=== PATIENT | female | born 1975 | race Hispanic/Latino ===

== ENCOUNTER 2016-11-21 11:39 | Observation (INO) | payer SELFPAY ==
[2016-11-21 11:59] LABS: Bilirubin Negative (Negative); Blood, Urine Small (Negative); Glucose, Urine (Dipstick) Negative (Negative); Ketone, Urine Negative (Negative); Nitrite Negative (Negative); Protein, Urine (Dipstick) Negative (Neg-Trace); Urobilinogen 0.2 mg/dL (0.2-1.0)
[2016-11-21 12:09] LABS: Bacteria/HPF 1+ HPF (None Seen); Hyaline Casts/LPF 0-3 HYALINE CAST LPF (0-3 Hyaline); Squamous Epithelial 0-3 HPF (0-3); WBC/HPF 0-3 HPF (0-3)
[2016-11-21 12:16] LABS: #Basophils 0.1 thou/uL (0.0-0.2); #Eosinphils 0.1 thou/uL (0.0-0.7); #Lymphocytes 2.3 thou/uL (1.20-3.40); #Monocytes 0.3 thou/uL (0.11-0.59); #Neutrophils 5.4 thou/uL (1.40-6.50); %Basophils 0.6 % (0.0-1.0); %Eosinophils 1.4 % (0.0-10.0); %Monocytes 3.9 % (0.0-10.0); Hematocrit 41.4 % (36.0-47.0); Mean Platelet Volume 8.1 fL (7.4-10.4); Red Blood Cell (RBC) Count 4.47 mill/uL (4.20-5.40); White Blood Cell (WBC) Count 8.2 thou/uL (4.8-10.8)
[2016-11-21 12:36] LABS: ALT (SGPT) 40 U/L (8-55); AST (SGOT) 34 U/L (5-34); Alkaline Phosphatase 75 U/L (40-150); Anion Gap 15 mmol/L (10-20); BUN (Urea Nitrogen) 8 mg/dL (7.0-18.7); Bilirubin, Total 0.8 mg/dL (0.2-1.2); Calc. Creatinine Clearance 0 mL/min (70-130); Calcium 8.9 mg/dL (7.8-10.44); Carbon Dioxide 22 mmol/L (22-29); Chloride 104 mmol/L (98-107); Estimated GFR-MDRD Greater than 90; Globulin 3.6 g/dL (2.4-3.5); Lipase 12 U/L (8-78); Protein, Total 7.5 g/dL (6.0-8.3)
[2016-11-21] MEDS ORDERED: Ondansetron HCl/PF 4 MG/2 ML Vial ONE ×2 (14:06→15:58)
[2016-11-21] MEDS ORDERED: Piperacillin/Tazobactam 3.375 GM in Sodium Chloride 0.9% 100 ML IVPB SCH (15:15)
[2016-11-21] MEDS ORDERED: Bupivacaine HCl 0.5%/Epinephrine 1:200,000/PF 30 ml Vial ONE (15:19)
[2016-11-21] MEDS ORDERED: Fentanyl 100 MCG/2 ML VIAL ONE (15:44)
[2016-11-21] MEDS ORDERED: Lidocaine 2% PF 10 ML AMP (For Epidural Use) ONE (15:58)
[2016-11-21] MEDS ORDERED: Propofol 200 MG/20 ML VIAL ONE (15:58)
[2016-11-21] MEDS ORDERED: Ketorolac Tromethamine 30 MG/ML VIAL ONE (15:58)
[2016-11-21] MEDS ORDERED: Dexamethasone 20 MG/5 ML VIAL ONE (15:58)
[2016-11-21] MEDS ORDERED: Glycopyrrolate 0.2 MG/ML 5 ML SYRINGE ONE (15:58)
[2016-11-21] MEDS ORDERED: Succinylcholine Chloride 20 MG/ML 10 ml SYRINGE FS ONE (15:58)
[2016-11-21] MEDS ORDERED: ISOVUE-370 76%-LOCM 1 ML ONE (16:44)
[2016-11-21] MEDS ORDERED: Iopamidol 370 76% 50 ML VIAL FS ONE (16:44)
--- NOTE | 2016-11-21 17:11 | HP ---
CHIEF COMPLAINT: Appendicitis. BRIEF HISTORY: The patient is a 41-year-old female with a history of pain in her lower abdomen, arabella cribed as sharp as 8/10, mostly in the right lower quadrant associated with nausea, no vomiting, no fevers or chills. No change in stools. No history of chronic abdominal pain. No history of inflam matory bowel disease. PAST MEDICAL HISTORY: She denies. PAST SURGICAL HISTORY: She denies. MEDICINES TAKEN DAILY: None. ALLERGIES: No known drug allergies. SOCIAL HISTORY: No smoking, alcohol or other drugs. REVIEW OF SYSTEMS: Ten system review of systems otherwise negative unless described above. PHYSICAL EXAMINATION: HEENT: Sclerae are anicteric. Oropharynx is clear. NECK: No lymphadenopathy. CHEST: Clear. HEART: Regular rate and rhythm. ABDOMEN: Soft, tender right lower quadrant, localized guarding, no rebound, no abdominal or inguina l hernias. EXTREMITIES: No ischemia or edema to extremities. DIAGNOSTIC DATA: CT scan shows acute appendicitis. ASSESSMENT: Acute appendicitis. PLAN: Laparoscopic appendectomy. Risks, benefits, and alternatives discussed. She gives consent. We will do this today.
[2016-11-21] MEDS ORDERED: Promethazine HCl 25 MG/ML VIAL IM PRN ×2 (17:18→19:44)
[2016-11-21] MEDS ORDERED: Promethazine HCl 25 MG/ML VIAL SLOW IVP PRN (17:18)
[2016-11-21] MEDS ORDERED: Ondansetron HCl/PF 4 MG/2 ML Vial IVP PRN ×2 (17:18→19:44)
--- NOTE | 2016-11-21 17:36 | CT ---
CONTRAST ENHANCED CT ABDOMEN AND PELVIS: Date: 11-21-16 History: Abdominal pain for two days, dysuria. Technique: Images obtained after the administration of IV and oral contrast. FINDINGS: The lung bases are unremarkable. No evidence of free intraperitoneal air is seen. The liver, spleen, gallbladder, pancreas, adrenal gland and kidneys are unremarkable. No dilated loo ps of small bowel seen. There is an abnormally thickened and inflamed appendix in the right lower quadrant with surrounding inflammatory change. The appendix measures up to 17 mm in diameter. Some adjacent pericecal lymphade nopathy is seen. No obvious evidence of abscess is seen. Also noted is an approximately 2-3 appendicolith within the appendix lumen. IMPRESSION: Abnormally thickened and inflamed appendix compatible with appendicitis. Findings called to Dr. Jesus ivla at 2:33 p.m. on 11-21-16. POS: [facility]
[2016-11-21 18:44] LABS: Troponin I Less than 0.010 ng/mL (< 0.028)
--- NOTE | 2016-11-21 19:15 | RAD ---
AP PORTABLE CHEST: Indication: Post op chest pain. Comparison: None. IMPRESSION: No acute cardiopulmonary abnormality. Low lung volumes. No pneumoperitoneum. COMMENTS: Heart size is accentuated by the exam technique. No airspace consolidation, pleural effusion or pneu mothorax is evident. No air is underlying the hemidiaphragms. No acute osseous abnormality is noted. POS: [facility]
[2016-11-21] MEDS ORDERED: HYDROcodone/Acetaminophen 10/325 mg Tablet PO PRN ×2 (19:44)
[2016-11-21] MEDS ORDERED: Dextrose 5% in Water 1,000 ML IV PRN (19:44)
[2016-11-21] MEDS ORDERED: Morphine Sulfate 2 MG/ML SYRINGE SLOW IVP PRN (19:44)
[2016-11-21] MEDS ORDERED: Nitroglycerin 0.4 MG TAB (25 Tab Bottle) SL PRN (19:44)
[2016-11-21] MEDS ORDERED: Dextrose 50% Abboject 50 ML SYRINGE SLOW IVP PRN (19:44)
[2016-11-21] MEDS ORDERED: Aspirin 325 MG TAB PO SCH (20:15)
[2016-11-21] MEDS: Famotidine 20 MG TAB PO SCH (20:48)
[2016-11-21] MEDS: Famotidine/PF 20 mg/2ml Vial SLOW IVP SCH (20:49)
[2016-11-21] MEDS: Sodium Chloride 0.9% 1,000 ML IV SCH (20:49)
[2016-11-21] MEDS: Piperacillin/Tazobactam 3.375 GM in Sodium Chloride 0.9% 100 ML IVPB SCH (20:50)
[2016-11-21] MEDS: Ketorolac Tromethamine 30 MG/ML VIAL IVP PRN (20:50)
[2016-11-21 21:30] LABS: Troponin I Less than 0.010 ng/mL (< 0.028)
--- NOTE | 2016-11-21 22:09 | OP ---
DATE OF PROCEDURE: 11/21/2016 PREOPERATIVE DIAGNOSIS: Acute appendicitis. POSTOPERATIVE DIAGNOSIS: Acute appendicitis. PROCEDURE PERFORMED: Laparoscopic appendectomy. SURGEON: Hosea Jensen M.D. ANESTHESIA: General. ESTIMATED BLOOD LOSS: Minimal. COMPLICATIONS: None. SPECIMEN: Appendix. FINDINGS: Appendicitis. TECHNIQUE: The patient was taken to the operating room and placed supine on the table. After gener al anesthetic was obtained, a Parada catheter was placed. The abdomen was shaved, and draped in a st erile fashion. Curved incision made below the umbilicus. Cautery was used to dissect down to and s core the fascia. Abdominal cavity was entered bluntly using a Amparo clamp. Holding stitch of PDS w as on each side of the fascia. Marinelli trocar was placed. High-flow pneumoperitoneum was obtained. A suprapubic 5-mm port and a left lower quadrant 5-mm port were placed under direct visualization. The cecum was rolled over to reveal acute appendicitis. A small window was made at the base of the appendix in the mesoappendix. Laparoscopic stapler was fired across the base of the appendix. A v ascular reload fired across the mesoappendix. The appendix was placed in an Endo catch bag and brou ght out through the Marinelli. There was no bleeding on the staple lines. The abdomen was irrigated u sing sterile solution. There was no damage to any intraabdominal structures or evidence of perforat ion. All port sites were infiltrated using local anesthetic. All ports were removed under direct v isualization without bleeding. Pneumoperitoneum was let down. PDS was used to close the fascial de fect below the umbilicus. All incisions were irrigated and closed using 4-0 Monocryl and Dermabond. The patient was en route to recovery in stable condition. All instrument counts, needle counts, a nd lap counts were correct.
[2016-11-21 22:23] VITALS: BMI 35.1
[2016-11-22 00:59] LABS: Troponin I Less than 0.010 ng/mL (< 0.028)
[2016-11-22] MEDS: Ketorolac Tromethamine 30 MG/ML VIAL IVP PRN (04:10)
[2016-11-22] MEDS: Piperacillin/Tazobactam 3.375 GM in Sodium Chloride 0.9% 100 ML IVPB SCH ×2 (04:11→08:09)
[2016-11-22 07:35] VITALS: TEMP 97.5
--- NOTE | 2016-11-22 08:03 | CON ---
DATE OF CONSULTATION: 11/21/2016 PRIMARY CARE PROVIDER: Eddie kwan PRIMARY SERVICE ATTENDING: Dr. Jensen. REASON FOR CONSULTATION: Chest pain. HISTORY OF PRESENT ILLNESS: This is a 41-year-old female, postoperatively evaluated in the PACU after emergent laparoscopic appendectomy, after presenting with an acute appendicitis. The nickie olivier underwent laparoscopic appendectomy. Apparently, uncomplicated and was transferred to PACU fo r general observation. The patient has complained of some upper abdominal and left-sided chest disc omfort and pressure radiating it initially 08/07. The patient received general anesthesia per PACU p minerva. The patient denied any known history of coronary artery disease, prior chest pain and PAC U personnel denied any any specific documented fever, hypertensive episodes of tachycardia or hypoxe jared. The patient did receive IV morphine sulfate in the emergency department, in addition to Zosyn 3.375 grams and intravenous normal saline with Zofran. The patient denies any strong family history of coronary artery disease. PAST MEDICAL HISTORY: Appendicitis. PAST SURGICAL HISTORY: Status post laparoscopic appendectomy secondary to appendicitis. CHRONIC MEDICATIONS: None. ALLERGIES: No known drug allergies. FAMILY HISTORY: No inheritable diseases per patient report. SOCIAL HISTORY: The patient is , accompanied by her at the bedside. No current alco hol, tobacco or illicit drug use. REVIEW OF SYSTEMS: The following complete review of systems was negative, unless otherwise mentione d in the HPI or below: Constitutional: Weight loss or gain, ability to conduct usual activities. Skin: Rash, itching. Eyes: Double vision, pain. ENT/Mouth: Nose bleeding, neck stiffness, pain, tenderness. Cardiovascular: Palpitations, dyspnea on exertion, orthopnea. Respiratory: Shortnes s of breath, wheezing, cough, hemoptysis, fever or night sweats. Gastrointestinal: Poor appetite, abdominal pain, heartburn, nausea, vomiting, constipation, or diarrhea. Genitourinary: Urgency, frequency, dysuria, nocturia. Musculoskeletal: Pain, swelling. Neurologic/Psychiatric: Anxiety, depression. Allergy/Immunolo gic: Skin rash, bleeding tendency. Otherwise negative except as stated as per HPI. PHYSICAL EXAMINATION: VITAL SIGNS: Currently, blood pressure 115/43, pulse 42-56, respiratory rate is 12, temperature 98. 0 degrees Fahrenheit, O2 saturation 100% on room air. GENERAL APPEARANCE: This is a 41-year-old female, alert and oriented x3, pleasant and in n o acute distress. HEENT: Pupils are equal, round, and reactive to light and accommodation. Extraocular muscles are i ntact. No scleral icterus, no conjunctival injection. Nares patent. OP is clear. NECK: Supple, no cervical adenopathy, no thyromegaly, no carotid bruits, no JVD appreciated. Cervi roosevelt spine with full active and passive range of motion. No meningeal signs appreciated. CHEST: Lungs are clear to auscultation bilaterally. CARDIOVASCULAR: S1, S2, without noted murmur. ABDOMEN: Tender to palpation in the left upper quadrant and right lower quadrant. Post-surgical ch anges noted without evidence of drainage or hemorrhage. Bowel sounds are diminished in all 4 quadra nts. EXTREMITIES: Warm and dry with fair turgor. No clubbing, cyanosis or asymmetric edema appreciated. Pulses palpable distally at the dorsalis pedis, posterior tibial and popliteal arteries bilaterall y. Capillary refill less than 2 seconds. NEUROLOGIC: Cranial nerves II-XII are grossly intact. No focal or lateralizing signs appreciated. PERTINENT LABORATORY AND X-RAY FINDINGS: Basic metabolic profile within normal limits. LFTs within normal limits. Albumin 3.9, lipase 12. CBC showed a white blood cell count 8.2, hemoglobin 14, he matocrit 41, and platelet count 216,[address] of the abdomen and pelvis date d 11/21/2016 showed inflammatory changes of the appendix consistent with appendicitis. The appendix measuring 1.7 cm bilateral lung bases clear. Portable chest x-ray dated 11/21/2016 by my interpret ation shows no acute cardiopulmonary process. EKG dated 11/21/2016 by my interpretation shows sinus bradycardia with heart rates in the 50s. Normal R-wave progression noted in the precordial leads. T-wave inversion in leads V1 and V2. Normal axis. No acute ST-T wave changes appreciated. ASSESSMENT AND PLAN: 1. Chest pain. Etiology unclear, likely post-surgical pain. We will continue serial cardiac enzym es with troponin I q.3h x3. Continue telemetry monitoring overnight. No current evidence to sugges t acute coronary syndrome. Continue symptomatic and supportive management. Consider IV Toradol 30 mg q.6 h. p.r.n. pain, Pepcid 20 mg q.12 h. 2. Acute appendicitis, status post laparoscopic appendectomy. We will continue routine postoperati ve care per primary service. Pain control with morphine sulfate. Continue intravenous normal salin e. Zosyn 3.375 grams IV q.6 h. 3. Sinus bradycardia. Stable currently. Continue telemetry monitoring. 4. Prophylaxis. Sequential compression devices, while in bed. Pepcid 20 mg p.o. b.i.d. 5. Code status is FULL. Surrogate medical decision maker is patient's spouse. Thank you for the consultation. We will continue to follow with primary service.
[2016-11-22] MEDS: Famotidine/PF 20 mg/2ml Vial SLOW IVP SCH (08:08)
[2016-11-22] MEDS: Sodium Chloride 0.9% 1,000 ML IV SCH (08:08)
[2016-11-22] MEDS: Famotidine 20 MG TAB PO SCH (08:09)
--- NOTE | 2016-11-22 08:14 | PRG ---
DATE OF SERVICE: 11/22/2016 Ms. Almazan is doing well this morning. She notes mild lower substernal chest pain is improved si nce yesterday. No significant abdominal pain, nausea. She tolerated diet without difficulty. PHYSICAL EXAMINATION: VITAL SIGNS: Blood pressure is 89/59, pulse is 40, temperature 97.5, respirations 16. ABDOMEN: Soft, appropriately tender. The wounds are healing well. ASSESSMENT: Postop day #1 laparoscopic appendectomy complicated by postop chest pain. Troponins no rmal. Tracing overnight showed about of nonsustained V-tach. PLAN: Will defer to medicine on disposition and plans for discharge.
[2016-11-22 08:18] LABS: #Lymphocytes 1.5 thou/uL (1.20-3.40); #Monocytes 0.4 thou/uL (0.11-0.59); #Neutrophils 7.9 thou/uL (1.40-6.50); %Basophils 0.1 % (0.0-1.0); %Eosinophils 0.1 % (0.0-10.0); %Lymphocytes 15.2 % (21.0-51.0); Red Blood Cell (RBC) Count 3.87 mill/uL (4.20-5.40); White Blood Cell (WBC) Count 9.8 thou/uL (4.8-10.8)
[2016-11-22 08:40] LABS: Anion Gap 11 mmol/L (10-20); BUN (Urea Nitrogen) 8 mg/dL (7.0-18.7); Calc. Creatinine Clearance 162 mL/min (70-130); Carbon Dioxide 22 mmol/L (22-29); Chloride 110 mmol/L (98-107); Estimated GFR-MDRD Greater than 90
--- NOTE | 2016-11-22 10:41 | DIS ---
DATE OF ADMISSION: 11/21/2016 DATE OF DISCHARGE: 11/22/2016 DISCHARGE DIAGNOSES: 1. Status post acute appendicitis. 2. Status post laparoscopic appendectomy, postop day #01. 3. Chest pain, non-cardiac. 4. Sinus bradycardia. 5. Asymptomatic nonsustained ventricular tachycardia. PRIMARY SERVICE ATTENDING: Dr. Jensen with General Surgery service. PERTINENT LABORATORY DATA AND X-RAY FINDINGS: Basic metabolic profile within normal limits. Tropon in I negative x3. Total cholesterol 185, triglycerides 72, HDL 41, LDL 130, lipase 12. CBC within normal limits. CT of the abdomen and pelvis dated 11/21/2016 showed thickened and inflamed appendix compatible for appendicitis. HOSPITAL COURSE: Patient was observed after presenting with acute appendicitis, undergoing laparosc opic appendectomy, 11/21/2016. Postoperatively, patient developed chest pain with serial troponins measured x3, all negative. EKG was performed showing sinus bradycardia without evidence of acute ST -T wave changes. The patient was placed on observation status on the telemetry unit with telemetry showing sinus bradycardia with heart rates ranging in the 40s to 60s. The patient was noted with as ymptomatic V-tach 5 beats nonsustained, resolving spontaneously. Overall, the patient remained clin ically stable throughout the hospital course with stable vital signs. The patient is asymptomatic o n the day of discharge tolerating regular oral intake, ambulatory without assistance or difficulty a nd ready for discharge 11/22/2016. DISCHARGE MEDICATIONS: 1. Lucernemines 10/325 mg 1-2 tabs p.o. q.6 hours p.r.n. pain. 2. Phenergan 25 mg 1 tab p.o. q.6 hours p.r.n. nausea, vomiting. FOLLOWUP: Patient will follow up with [facility] in [place], [place] within 7 days of discharge. Dalia ent will follow up with Dr. Jensen with General Surgery Service within 7 days of discharge. CONDITION ON DISCHARGE: Stable. ACTIVITY: Ad rashid. DIET: Heart healthy. CODE STATUS: FULL. DISPOSITION: Home, 11/22/2016.
[2016-11-22 10:44] VITALS: BP 90/50
== END 2016-11-22 12:14 | disposition home or self-care (01) ==
LOC: ERS 11:39 → SDC 15:38 → 2SW 19:28
PROVIDERS: ADMIT Family Medicine; ATTEND Surgery
PROC: 0DTJ4ZZ Resection of Appendix, Percutaneous Endoscopic Approach (ICD-10-PCS; principal; 2016-11-22)
DX: K35.80 Unspecified acute appendicitis (principal); R07.89 Other chest pain; R00.1 Bradycardia, unspecified; I47.2 Ventricular tachycardia
CPT/HCPCS: 36415; 71010; 74177; 80048; 80053; 80061; 81003; 81015; 81025; 83690; 84484; 85025; 88304; 93005; 93010; 94760; 96361; 96365; 96366; 96374; 96375; 96376; G0378; J0670; J1100; J1885; J2001; J2270; J2405; J2543; J2704; J3010; J7050; S0028

== ENCOUNTER 2019-09-18 00:50 | Inpatient (IN) | payer OTHER, SELFPAY ==
[2019-09-18 01:37] LABS: Hemoglobin 13.4 g/dL (12.0-16.0); Mean Corpuscular HGB CONC 34.6 g/dL (32.0-36.0); Mean Corpuscular Hemoglobin 31.9 pg (27.0-31.0); Mean Corpuscular Volume 92.1 fL (78.0-98.0); Mean Platelet Volume 8.6 fL (7.4-10.4); Platelet Count 180 thou/uL (130-400); RBC Distribution Width 11.2 % (11.5-14.5); White Blood Cell (WBC) Count 2.9 thou/uL (4.8-10.8)
[2019-09-18 01:50] LABS: ALT (SGPT) 16 U/L (8-55); AST (SGOT) 17 U/L (5-34); Albumin 3.9 g/dL (3.5-5.0); Alkaline Phosphatase 46 U/L (40-110); Anion Gap 11 mmol/L (10-20); BUN (Urea Nitrogen) 10 mg/dL (7.0-18.7); Bilirubin, Total 0.2 mg/dL (0.2-1.2); Calc. Creatinine Clearance 0 mL/min (70-130); Calcium 8.1 mg/dL (7.8-10.44); Carbon Dioxide 22 mmol/L (22-29); Chloride 108 mmol/L (98-107); Estimated GFR-MDRD 70; Globulin 2.8 g/dL (2.4-3.5); Glucose 101 mg/dL (70-105); Potassium 3.7 mmol/L (3.5-5.1); Protein, Total 6.7 g/dL (6.0-8.3); Sodium 137 mmol/L (136-145)
[2019-09-18] MEDS ORDERED: Atropine Sulfate 1 mg/10 ml Syringe ONE ×2 (02:10→02:51)
[2019-09-18 02:14] LABS: Band 5 % (5-11); Eosinophils 1 % (0-10); Lymphocytes 58 % (21-51); MDiff Complete? YES; Monocytes 5 % (0-10); Neutrophil 31 % (42-75); Platelet Morphology Comment Appears Adequate; RBC Morphology Normal
[2019-09-18] MEDS ORDERED: Sodium Chloride 0.9% 1,000 ML IV SCH (03:32)
[2019-09-18 04:00] VITALS: BMI 31.3
[2019-09-18] MEDS ORDERED: Atropine Sulfate 1 mg/10 ml Syringe IVP SCH (04:15)
[2019-09-18] MEDS ORDERED: Ondansetron ODT 4 MG TAB PO PRN (04:28)
[2019-09-18] MEDS ORDERED: Dextrose 5% in Water 1,000 ML IV PRN (04:45)
[2019-09-18] MEDS ORDERED: Dextrose 50% Abboject 50 ML SYRINGE SLOW IVP PRN (04:45)
[2019-09-18] MEDS: Sodium Chloride 0.9% 1,000 ML IV SCH ×3 (05:36→19:39)
--- NOTE | 2019-09-18 07:02 | HP ---
PRIMARY CARE PROVIDER: Shweta [place], [place]. CHIEF COMPLAINT: Generalized weakness. HISTORY OF PRESENT ILLNESS: This is a 44-year-old female who presents for increasing generalized weakness over the last 3 to 4 days after apparently testing positive for COVID-19 at an outside facility. The patient noted progressive fatigue and weakness, at which point EMS was notified. EMS personnel arrived at her home and noted altered mentation with a heart rate noted in the 30s. The patient was given atropine, which increased the heart rate into the 50s, at which the patient became more coherent and lucid. The patient has been noted with bradycardia after admission to [facility] in 2017, but was not put on any specific therapy for the condition. The patient admitted to associated diarrhea without documented fever or chills. The patient denied any prominent shortness of breath, cough, congestion, or history of pneumonia. The patient denied any associated chest pain. The patient denied any new exposure to medications or family members with similar symptoms. In the emergency room, the patient underwent general evaluation with EKG showing sinus bradycardia with heart rates in the 30s to 50s. The patient was given atropine 0.5 mg IV push x1 dose and intravenous normal saline 500 mL x1. PAST MEDICAL HISTORY: 1. Sinus bradycardia. 2. Diabetes mellitus type 2, on oral hypoglycemics. PAST SURGICAL HISTORY: Status post section. CURRENT MEDICATIONS: Metformin 500 mg p.o. daily. ALLERGIES: NO KNOWN DRUG ALLERGIES. FAMILY HISTORY: Positive for diabetes mellitus. SOCIAL HISTORY: Resides in [place], [place]. No current alcohol, tobacco, or illicit drug use. Functional of all activities of daily living. REVIEW OF SYSTEMS: CONSTITUTIONAL: Negative for weight loss or gain, ability to conduct usual activities. SKIN: Negative for rash, itching. EYES: Negative for double vision, pain. ENT/MOUTH: Negative for nose bleeding, neck stiffness, pain, tenderness. CARDIOVASCULAR: Negative for palpitations, dyspnea on exertion, orthopnea. RESPIRATORY: Negative for shortness of breath, wheezing, cough, hemoptysis, fever or night sweats. GASTROINTESTINAL: Negative for poor appetite, abdominal pain, heartburn, nausea, vomiting, constipation, or diarrhea. GENITOURINARY: Negative for urgency, frequency, dysuria, nocturia. MUSCULOSKELETAL: Negative for pain, swelling. NEUROLOGIC/PSYCHIATRIC: Negative for anxiety, depression. ALLERGY/IMMUNOLOGIC: Negative for skin rash, bleeding tendency. Otherwise, negative except as stated per HPI. PHYSICAL EXAMINATION: VITAL SIGNS: On admission, blood pressure 112/70, pulse 51, respiratory rate 20, temperature 98 degrees Fahrenheit, and O2 saturation 100% on room air. GENERAL APPEARANCE: This is a 44-year-old female, alert and oriented x3, pleasant, responsive, in no acute distress. HEENT: Pupils are equal, round, reactive to light and accommodation. Extraocular muscles are intact. No scleral icterus. No conjunctival injection. Nares are patent. OP is clear. Teeth in fair repair. NECK: Supple. No cervical adenopathy. No thyromegaly. No carotid bruits. No JVD appreciated. Cervical spine with full active and passive range of motion. No meningeal signs noted. CHEST: Lungs are clear to auscultation bilaterally. CARDIOVASCULAR EXAM: S1 and S2 with bradycardia. No murmur, rub, or gallop appreciated. ABDOMEN: Rounded, soft, nontender, and nondistended. Bowel sounds are positive in all 4 quadrants. There is no hepatosplenomegaly. No abdominal bruits. No rebound or guarding appreciated. EXTREMITIES: Warm and dry with fair turgor. No clubbing, cyanosis, or asymmetric edema appreciated. Pulses palpable distally at the dorsalis pedis, posterior tibial, and popliteal arteries bilaterally. Capillary refill less than 2 seconds. NEUROLOGIC: Cranial nerves 2 through 12 are grossly intact. No focal or lateralizing signs appreciated. PERTINENT LABORATORY AND X-RAY FINDINGS: Sodium 137, potassium 3.7, chloride 108, CO2 of 22, BUN 10, creatinine 0.89, glucose 101, calcium 8.1. Troponin I negative x1. Albumin 3.9. TSH 5.95. CBC showed a white blood cell count 2.9, hemoglobin 13.4, hematocrit 39, platelet count 180 with 31% neutrophils and 58% lymphocytes. Portable chest x-ray dated 09/18/2019, by my interpretation shows cardiomegaly. No acute infiltrate identified. ASSESSMENT AND PLAN: 1. Symptomatic bradycardia. We will consult Cardiology Service in the a.m. for further recommendations. Continue external pacers at the bedside. Provide atropine 0.5 mg IV push as needed. Check 2D transthoracic echocardiogram. 2. COVID-19 positive. The patient will be placed on respiratory and droplet precautions. No hypoxia noted. Continue dexamethasone at 6 mg p.o. daily. Serial ferritin, D-dimer. 3. Diabetes mellitus, type 2. Insulin sliding scale for reflexive coverage. Serial Accu-Cheks before meals and at bedtime. ADA diet when tolerating p.o. intake. 4. Prophylaxis. Sequential compression devices while in bed. Pepcid 20 mg p.o. b.i.d. 5. Code status, full. Surrogate medical decision maker is the patient's mother. Job ID: [id number]
[2019-09-18 07:49] LABS: Troponin I Less than 0.010 ng/mL (< 0.028)
--- NOTE | 2019-09-18 07:51 | RAD ---
EXAM: Single view of the chest HISTORY: Shortness of breath and weakness. Altered mental status COMPARISON: 11/21/2016 FINDINGS: Single view of the chest shows a normal sized cardiomediastinal silhouette. There is no denisse dence of consolidation, mass, or pleural effusion. The bones are unremarkable IMPRESSION: No evidence of acute cardiopulmonary disease
[2019-09-18] MEDS: Famotidine 20 MG TAB PO SCH ×2 (08:30→19:39)
--- NOTE | 2019-09-18 12:59 | CON ---
DATE OF CONSULTATION: 09/18/2019 HISTORY OF PRESENT ILLNESS: Rose Almazan is a 44-year-old female, 82 kg, is in the hospital for marked weakness and found to have significant bradycardia. Heart rate was 30. She was given some atropine and it went to 50. She was admitted to the ICU. She was diagnosed to have a positive coronavirus over the weekend several days ago. She is in the ICU, reason for consult. Apparently, Cardiology to see the patient. PAST MEDICAL HISTORY: Pertinent for diabetes. PAST SURGICAL HISTORY: 1. Cystectomy. 2. . SOCIAL HISTORY: No alcohol or tobacco abuse. HOME MEDICINE: Metformin 500 once a day. ALLERGIES: NONE. REVIEW OF SYSTEMS: Otherwise, negative. She is now in the ICU. A chest x-ray at the time of admission showed no obvious infiltrates. Symptomatic bradycardia, recent diagnosis of rocha positive pneumonia, diabetes. Pulmonary carmona, asymptomatic, we are not treated with any medication as far as for virus. Input from Cardiology. Pulmonary will follow while in the ICU. TIME SPENT: Consultation note, 70 minutes, 50% direct patient care. Job ID: [id number]
[2019-09-18] MEDS ORDERED: Dexamethasone 4 MG TAB PO SCH (13:15)
[2019-09-18 13:51] LABS: Free T4 (Free Thyroxine) 0.88 ng/dL (0.70-1.48)
[2019-09-18] MEDS: DOPamine 400 MG/D5W 250 ML 250 ML IVPB SCH (14:48)
--- NOTE | 2019-09-18 15:47 | PDOC.HOSPP ---
- Subjective Encounter Date: 09/18/19 Encounter Time: 12:30 Subjective: THe patient states her weakness has significantly improved. She states she mostly presented with weakness and had trouble getting out of bed. She has minimal cough and no blood. No chest pain. No dizziness or lightheadedness when walking. patient states she didn't sleep well last night because her heart rate went down into the 30's at times. She denies history of heart problems in the past Explained to patient cannot do pacemaker at this time due to COVId infection - Objective Vital Signs & Weight: Vital Signs (12 hours) Temp 09/18/19 08:00 97.8 F 09/18/19 04:17 98.4 F Weight Weight 182 lb 5.156 oz Most Recent Monitor Data Heart Rate from ECG 41 NIBP 111/63 NIBP BP-Mean 79 Respiration from ECG 16 SpO2 100 I&O: 09/17/19 09/18/19 09/19/19 06:59 06:59 06:59 Intake Total 130 Output Total 450 Balance -320 Result Diagrams: 09/18/19 01:10 09/18/19 01:10 Hospitalist ROS - Review of Systems Constitutional: denies: fever, chills - Medication Medications: Active Medications Generic Name Dose Route Start Last Admin Trade Name Freq PRN Reason Stop Dose Admin Famotidine 20 mg 09/18/19 09:00 09/18/19 08:30 Pepcid PO 20 mg BID EVE Administration Sodium Chloride 1,000 mls @ 100 mls/hr 09/18/19 04:30 09/18/19 14:50 Normal Saline 0.9% IV 1,000 mls .Q10H EVE Administration Dopamine HCl/Dextrose 250 mls @ 7.753 mls/hr 09/18/19 13:15 09/18/19 14:48 Dopamine 400 Mg/D5w 250 Ml IVPB 250 mls INF EVE Administration Protocol 2.5 MCG/KG/MIN - Exam General Appearance: NAD, awake alert Eye: PERRL, anicteric sclera ENT: normocephalic atraumatic, no oropharyngeal lesions Neck: no JVD Heart: RRR, no murmur, no gallops, no rubs Respiratory: CTAB, no wheezes, no rales, no ronchi Gastrointestinal: soft, non-tender, non-distended, normal bowel sounds Extremities: no cyanosis, no clubbing, no edema Skin: normal turgor, no lesions, no rashes Neurological: cranial nerve grossly intact, normal sensation to touch, no focal deficits, no new deficit Musculoskeletal: normal tone, normal strength, no muscle wasting Psychiatric: normal affect, normal behavior, A&O x 3, oriented to person Hosp A/P - Plan This is a 44 year old female with past medical history of diabetes recently diagnosed with COVID who presented with weakness, she was found to be bradycardic as well Generalized weakness - possibly from COVID vs bradycardia - currently not requiring oxygen - heart rate intermittently dropping into 30's and patient slightly hypotensive. Starting on dopamine per cardiology - TSH elevated at 5.9, but free T3 and T4 normal -trial dexamethasone given COVID infection Leukopenia - WBC 2.9, likely from COVID - will monitor Type II diabetes - continue insulin sliding sclae
[2019-09-18] MEDS ORDERED: Lidocaine 1% w/Epinephrine 1:100K 20 ML VIAL IJ SCH (16:12)
[2019-09-18] MEDS ORDERED: Lidocaine 1% w/Epinephrine 1:100K 20 ML VIAL ONE (16:19)
[2019-09-18] MEDS ORDERED: Lidocaine 1% (PF) 30 ML VIAL ONE (17:10)
--- NOTE | 2019-09-18 19:58 | RAD ---
PORTABLE CHEST ONE VIEW: 09/18/19 at 6:17 p.m. HISTORY: Central line placement. COMPARISON: Earlier exam of 1:42 a.m. from the same date. FINDINGS/IMPRESSION: There has been interval placement of a right internal jugular central venous catheter with tip in the projection of the right atrium. No pneumothorax is seen. The heart size is normal. No lobar consolid ation or pleural effusions are identified. POS: [facility]
--- NOTE | 2019-09-18 20:00 | CON ---
DATE OF CONSULTATION: 09/18/2019 INDICATION FOR CONSULTATION: A 44-year-old female with symptomatic bradycardia. HISTORY OF PRESENT ILLNESS: This 44-year-old female, who is Ghanaian-speaking only, apparently had been not feeling well over the last several days. She was found to be positive for COVID at a different facility. She then was presented here after family noticed that she was somewhat unresponsive or had altered mentation. Her heart was found to be in the 30s by EMT. She was given, I believe, atropine. The heart rate did increase. She became more lucid. She then was brought to the emergency room and was admitted to the hospital. She has also had some problems with some diarrhea. She denied any significant shortness of breath. Apparently , her chest pain. She had no other symptoms according to the records. Her EKG did show heart rates which were sinus in the 30s to 50s. She did have an old EKG previously, which also showed heart rate in the 50s, this was from a previous admission. Otherwise, she has had no chest pain or any symptoms of congestive heart failure. PAST MEDICAL HISTORY: Significant for the bradycardia, which is an ongoing problem for her. She also has diabetes type 2. She has had a and noticed from her laboratory data that she has what appears to be hypothyroidism, which may be contributing some to the bradycardia. The workup is not yet complete and there has been no history in the past of any problems with her thyroid. MEDICATIONS: Prior to admission include metformin 500 mg a day. ALLERGIES: NONE. FAMILY HISTORY: Positive for diabetes. SOCIAL HISTORY: There is no history of alcohol or tobacco abuse. REVIEW OF SYSTEMS: Unremarkable except for not feeling well what is noted in the history of present illness. Otherwise, no significant complaints on the review of systems. PHYSICAL EXAMINATION: GENERAL: Reveals a well-developed, well-nourished, young appearing female. VITAL SIGNS: Stable. Her blood pressure is 89/49, previously was 109/60; heart rate is in the 40s to 50s at present and is around 42 beats per minute, last evening it was in the 30s; temperature is 98.4; respiratory rate is 13 to 15. HEENT: Shows the head to be normocephalic and atraumatic. NECK: Carotid pulses are present. There were no bruits noted. CHEST: Actually was clear to auscultation. CARDIOVASCULAR: Reveals a bradycardia, which is regular. There were no gross murmurs. ABDOMEN: Soft and nontender. EXTREMITIES: Show no clubbing, cyanosis, or edema. Pedal pulses are present. NEUROLOGIC: She appears to be intact. Also please note her heart rate varies even while monitoring the patient, it was in the 40s to 52 beats per minute. All remained sinus. LABORATORY DATA: Sodium is 137, potassium 3.7, BUN was 10, creatinine 0.89, blood sugar was 109, bicarb was 22. Hemoglobin is 13.4, WBC of 2.9, platelet count of 180,000. TSH was 5.9. Cardiac enzymes are negative for myocardial infarction. EKG shows a sinus bradycardia with no acute changes. IMPRESSION: Sinus bradycardia, which has become worsen and may be perhaps due to her illness, perhaps due to overall illness with COVID, or due to underlying what appears to be hypothyroidism. At this time, she is not a candidate to undergo pacemaker insertion. She may have been symptomatic with bradycardia for sure if it is in the 30s, but at this time is not a candidate for pacemaker insertion. She does have an external pacemaker at bedside and this would be used if necessary. She did respond to atropine, which we could continue to use on a p.r.n. basis. If necessary, we could start a low dose of epinephrine if we had too or even we could start her on dopamine to increase her heart rate. At this time, her blood pressure seems to be somewhat fluctuant also, but is stable, most likely lower blood pressures are due to also trying to check it with the cuff during bradycardia . At this time, I believe she is overall stable. She appears to be asymptomatic and very comfortable. We will continue to monitor the patient with you but at this time, again she is not a candidate for pacemaker insertion, but she will need to be monitored in the hospital for further events and should she need to have the dopamine started, then we could certainly do this and may try a low-dose of dopamine to see if it improves her overall. Job ID: [id number] MTDD
[2019-09-18] MEDS: HumaLOG 300 UNITS/3 ML VIAL SC PRN (20:09)
[2019-09-18] MEDS: Acetaminophen 500 MG TAB PO PRN (21:46)
[2019-09-19] MEDS: DOPamine 400 MG/D5W 250 ML 250 ML IVPB SCH ×3 (01:26→20:07)
[2019-09-19] MEDS: Sodium Chloride 0.9% 1,000 ML IV SCH ×4 (01:27→22:17)
--- NOTE | 2019-09-19 01:29 | OP ---
DATE OF PROCEDURE: 09/18/2019 PREOPERATIVE DIAGNOSES: Bradycardia, venous insufficiency. POSTOPERATIVE DIAGNOSES: Bradycardia, venous insufficiency. PROCEDURE PERFORMED: Central line, right internal jugular vein. ANESTHESIA: Local. ESTIMATED BLOOD LOSS: Minimal. COMPLICATIONS: None. SPECIMEN: None. FINDINGS: Tip of the catheter is in proper position on post film x-ray. DESCRIPTION OF PROCEDURE: The patient was taken to the operative table and laid supine on the operating room table. After technique, the right neck was prepped and draped in a sterile fashion. Local anesthetic was infiltrated over the right internal jugular vein. Internal jugular vein was cannulated using a 22-gauge spinal needle followed by a Seldinger needle. Wire was passed into the superior vena cava under fluoro guidance. A polly was made at the wire entrance site. The wire was used as a guide to dilate the internal jugular vein. Triple-lumen catheter was threaded to 16 cm. All ports were flushed and julián blood without difficulty. It was just flushed with a saline solution. The sterile dressings were placed. The patient tolerated the procedure well. Postprocedure film showed tip of the catheter to be at the atriocaval junction. Job ID: [id number]
[2019-09-19 05:25] LABS: #Lymphocytes 1.4 thou/uL (1.20-3.40); #Monocytes 0.2 thou/uL (0.11-0.59); #Neutrophils 3.1 thou/uL (1.40-6.50); %Eosinophils 0.3 % (0.0-10.0); %Lymphocytes 29.1 % (21.0-51.0); %Monocytes 4.3 % (0.0-10.0); %Neutrophils 66.3 % (42.0-75.0); Hemoglobin 14.4 g/dL (12.0-16.0); Mean Corpuscular HGB CONC 34.4 g/dL (32.0-36.0); Mean Corpuscular Hemoglobin 31.1 pg (27.0-31.0); Mean Corpuscular Volume 90.6 fL (78.0-98.0); Mean Platelet Volume 8.2 fL (7.4-10.4); Platelet Count 206 thou/uL (130-400); RBC Distribution Width 11.3 % (11.5-14.5); Red Blood Cell (RBC) Count 4.64 mill/uL (4.20-5.40); White Blood Cell (WBC) Count 4.7 thou/uL (4.8-10.8)
[2019-09-19 05:47] LABS: Anion Gap 13 mmol/L (10-20); BUN (Urea Nitrogen) 8 mg/dL (7.0-18.7); Calc. Creatinine Clearance 137 mL/min (70-130); Calcium 8.5 mg/dL (7.8-10.44); Carbon Dioxide 22 mmol/L (22-29); Chloride 107 mmol/L (98-107); Estimated GFR-MDRD Greater than 90; Glucose 176 mg/dL (70-105); Magnesium 1.8 mg/dL (1.6-2.6); Potassium 3.5 mmol/L (3.5-5.1); Sodium 138 mmol/L (136-145)
[2019-09-19] MEDS: Famotidine 20 MG TAB PO SCH ×2 (07:44→20:07)
[2019-09-19] MEDS: Dexamethasone 4 MG TAB PO SCH (07:44)
[2019-09-19] MEDS: Acetaminophen 500 MG TAB PO PRN ×3 (07:44→20:07)
--- NOTE | 2019-09-19 10:28 | PRG ---
DATE OF SERVICE: 09/19/2019 HISTORY OF PRESENT ILLNESS: Rose Almazan is a 44-year-old. OBJECTIVE: VITAL SIGNS: Sats 100% on room air, blood pressure 126/65, and heart rate is 35. CHEST: Cardiology is seeing her. She has no difficulty breathing. Chest, no wheezing. CARDIAC: Normal S1 and S2. No gallops. ABDOMEN: No masses. LABORATORY DATA: Unremarkable. Thyroid function is mildly elevated. Apparently, here Coronavirus serology was positive. Bradycardia, Coronavirus positive serology. She pulmonary carmona is asymptomatic. I see no reason to start any Decadron. She received no medication for the virus since she is asymptomatic. Input from Cardiology. Pulmonary will follow while in the ICU. Job ID: [id number]
[2019-09-19] MEDS: Ondansetron PF 4 MG/2 ML Vial IVP PRN (12:05)
--- NOTE | 2019-09-19 16:19 | PDOC.HOSPP ---
- Subjective Encounter Date: 09/19/19 Encounter Time: 11:00 Subjective: The patient states she has a headache. She feels nauseous with dry heaving and vomited earlier. SHe still feels weak. Heart rate still low on dopamine - Objective Vital Signs & Weight: Vital Signs (12 hours) Temp Pulse Ox 09/19/19 12:00 97.8 F 09/19/19 08:00 100 09/19/19 07:00 97.4 F L Weight Weight 182 lb 5.156 oz Most Recent Monitor Data Heart Rate from ECG 44 NIBP 114/60 NIBP BP-Mean 78 Respiration from ECG 22 SpO2 99 I&O: 09/18/19 09/19/19 09/20/19 06:59 06:59 06:59 Intake Total 130 4350 600 Output Total 450 7020 1440 Balance -320 -2670 -840 Result Diagrams: 09/19/19 05:15 09/19/19 05:15 Additional Labs: Accuchecks 09/18/19 09/18/19 15:10 13:05 POC Glucose 124 H 132 H Hospitalist ROS - Review of Systems Constitutional: denies: fever, chills - Medication Medications: Active Medications Generic Name Dose Route Start Last Admin Trade Name Freq PRN Reason Stop Dose Admin Acetaminophen 1,000 mg 09/18/19 04:28 09/19/19 13:05 Tylenol PO 1,000 mg Q6H PRN Administration Mild Pain (1-3) Dexamethasone 6 mg 09/19/19 08:00 09/19/19 07:44 Decadron PO 6 mg QAM-WM EVE Administration Famotidine 20 mg 09/18/19 09:00 09/19/19 07:44 Pepcid PO 20 mg BID EVE Administration Sodium Chloride 1,000 mls @ 100 mls/hr 09/18/19 04:30 09/19/19 11:55 Normal Saline 0.9% IV 1,000 mls .Q10H EVE Administration Dopamine HCl/Dextrose 250 mls @ 7.753 mls/hr 09/18/19 13:15 09/19/19 11:55 Dopamine 400 Mg/D5w 250 Ml IVPB 250 mls INF EVE Administration Protocol 2.5 MCG/KG/MIN Insulin Human Lispro 0 units 09/18/19 04:45 07/21/20 20:09 Humalog SC 2 units .BEDTIME SLIDING SC PRN Administration Bedtime Correctional Scale Ondansetron HCl 4 mg 09/18/19 04:28 09/19/19 12:05 Zofran IVP 4 mg Q6H PRN Administration Nausea/Vomiting - Exam General Appearance: NAD, awake alert Eye: PERRL, anicteric sclera ENT: normocephalic atraumatic, no oropharyngeal lesions Neck: supple, no JVD Heart: RRR, no murmur, no gallops, no rubs Respiratory: CTAB, no wheezes, no rales, no ronchi Gastrointestinal: soft, non-tender, non-distended, normal bowel sounds Extremities: no cyanosis, no clubbing, no edema Skin: normal turgor, no lesions, no rashes Neurological: cranial nerve grossly intact, normal sensation to touch, no focal deficits, no new deficit Musculoskeletal: normal tone, normal strength, no muscle wasting Psychiatric: normal affect, normal behavior, A&O x 3 Hosp A/P - Plan This is a 44 year old female with past medical history of diabetes recently diagnosed with COVID who presented with weakness, she was found to be bradycardic as well Generalized weakness - possibly from COVID vs bradycardia - currently not requiring oxygen. Chest X ray normal - TSH elevated, but free T3 and T4 normal. Repeat TSH ordered - continue dexamethasone Bradycardia = possibly from COVID - appreciate cardiology recs - still on dopamine Leukopenia - WBC 2.9, likely from COVID - will monitor Type II diabetes - continue insulin sliding sclae
[2019-09-19] MEDS ORDERED: Magnesium Oxide 400 MG TAB PO SCH (16:45)
[2019-09-19] MEDS ORDERED: Isoproterenol 2 MG in Dextrose 5% in Water 500 ML IVPB SCH (17:00)
--- NOTE | 2019-09-19 17:25 | CON ---
DATE OF CONSULTATION: 09/19/2019 REFERRING WELLNESS MANAGER: Regina Banks MD REASON FOR CONSULTATION: Symptomatic bradycardia. HISTORY OF PRESENT ILLNESS: Ms. Almazan is a pleasant 44-year-old Uz[place]-speaking female. She has symptoms of sore throat, cough, fever, and fatigue for approximately 5 days. She had a history of bradycardia after appendectomy years ago. She has been asymptomatic. The day prior to admission, she called EMS for severe weakness and fatigue. She had altered mental status, but no loss of consciousness. She noted to be bradycardic in the 30s on arrival of EMS. They gave her atropine, and her mental status and heart rate improved. Since admission, she has been treated for COVID. She does not have oxygen requirement. She currently has fatigue and mild dyspnea. No other complaints. Her heart rate has been in the 30s at time, but mainly in the 40s. I was able to have her do some leg lifts and her heart rate increased into the low 60s. She has been on dopamine at 7.5 mcg/kg/minute intravenously as she is hypotensive in the 80s. Her blood pressure has come back up to the 110s and 115s. She has been receiving intravenous fluids with normal saline at 100 mL/minute. She has good urine output. PAST MEDICAL HISTORY: 1. Type 2 diabetes mellitus. 2. Asymptomatic sinus bradycardia. PAST SURGICAL HISTORY: 1. section. 2. Appendectomy. ALLERGIES: NO KNOWN DRUG ALLERGIES. OUTPATIENT MEDICATIONS: Metformin 500 mg daily. FAMILY HISTORY: Positive for diabetes. SOCIAL HISTORY: She lives in [place]. No tobacco, alcohol, or drugs. REVIEW OF SYSTEMS: Negative for weight loss, syncope, stroke, seizures, melena, bright red blood per rectum, or hematemesis. PHYSICAL EXAMINATION: GENERAL: Alert and oriented x4, in no apparent distress. VITAL SIGNS: Blood pressure 117/70, afebrile, pulse 44, respiratory rate 12, and oxygen saturation 100% on room air. The remainder of physical exam is deferred. LABORATORY DATA: WBC 2.9, hemoglobin 13.4, and platelets 180. Sodium 138, potassium 3.5, and creatinine 0.7. Free T4 is normal at 0.88, TSH is pending. EKG, normal sinus rhythm, normal. IMPRESSION: 1. Sinus bradycardia with mental status changes, which responded to atropine. 2. Hypotension, being treated with dopamine and intravenous fluids. She does have a central line. 3. COVID positive. RECOMMENDATIONS: I was able to increase her heart rate to the 60s with leg lifts. I recommend continuing dopamine at the current dose. Add isoproterenol at 1 mg/minute intravenously for heart rate sustained less than 40. May titrate up to 4 mg/minute as needed to maintain heart rate greater than 40. I would not place permanent pacemaker at this time and continue to observe. Job ID: [id number]
[2019-09-19] MEDS: HumaLOG 300 UNITS/3 ML VIAL SC PRN ×2 (18:05→20:08)
--- NOTE | 2019-09-19 22:10 | PDOC.CPN ---
- Subjective Date: 09/19/19 Time: 15:00 - Objective Allergies/Adverse Reactions: Allergies Allergy/AdvReac Type Severity Reaction Status Date / Time No Known Drug Allergies Allergy Verified 11/21/16 15:12 Visit Medications: Current Medications Acetaminophen (Tylenol) 1,000 mg PO Q6H PRN PRN Reason: Mild Pain (1-3) Last Admin: 09/19/19 20:07 Dose: 1,000 mg Dexamethasone (Decadron) 6 mg PO QAM-WM EVE Last Admin: 09/19/19 07:44 Dose: 6 mg Dextrose/Water (Dextrose 50%) 25 gm SLOW IVP PRN PRN PRN Reason: Hypoglycemia Famotidine (Pepcid) 20 mg PO BID EVE Last Admin: 09/19/19 20:07 Dose: 20 mg Glucagon (Glucagon) 1 mg IM PRN PRN PRN Reason: Hypoglycemia Sodium Chloride (Normal Saline 0.9%) 1,000 mls @ 100 mls/hr IV .Q10H EVE Last Admin: 09/19/19 20:07 Dose: 1,000 mls Dextrose/Water (D5w) 1,000 mls @ 0 mls/hr IV .Q0M PRN PRN Reason: Hypoglycemia Dopamine HCl/Dextrose (Dopamine 400 Mg/D5w 250 Ml) 250 mls @ 7.753 mls/hr IVPB INF EVE; Protocol Last Admin: 09/19/19 20:07 Dose: 250 mls Isoproterenol HCl 2 mg/ (Dextrose/Water) 510 mls @ 0 mls/hr IVPB INF EVE; Protocol Insulin Human Lispro (Humalog) 0 units SC .MILD SLIDING SCALE PRN PRN Reason: Mild Correctional Scale Last Admin: 09/19/19 18:05 Dose: 2 units Insulin Human Lispro (Humalog) 0 units SC .BEDTIME SLIDING SC PRN PRN Reason: Bedtime Correctional Scale Last Admin: 09/19/19 20:08 Dose: 2 units Ondansetron HCl (Zofran Odt) 4 mg PO Q6H PRN PRN Reason: Nausea/Vomiting Ondansetron HCl (Zofran) 4 mg IVP Q6H PRN PRN Reason: Nausea/Vomiting Last Admin: 09/19/19 12:05 Dose: 4 mg Vital Signs & Weight: Vital Signs Temp 09/19/19 19:00 98.5 F 09/19/19 12:00 97.8 F Weight 182 lb 5.156 oz - Quality Measures CV meds: Beta Nafisa: Yes, Statin: Yes - Physical Exam General: other (Exam deferred today by me due to COVID -19.) - Labs Result Diagrams: 09/19/19 05:15 09/19/19 05:15 Troponin/CKMB Troponin I Less than 0.010 ng/mL (< 0.028) 09/18/19 07:06 - EKG Interpretation EKG: sinus rhythm EKG shows: bradycardia - Assessment/Plan Assessment/Plan: 1. Sinus bradycardia: symptomatic with confusion and MS changes.. She did improve with atropine. I will ask EP to review her case but she may likely need a pacemaker. 2. Covid-19 +. She complains of fatigue but no fever or cough. yo
[2019-09-20] MEDS: HumaLOG 300 UNITS/3 ML VIAL SC PRN ×3 (05:54→16:50)
[2019-09-20 05:59] LABS: Hemoglobin 13.7 g/dL (12.0-16.0); Mean Corpuscular HGB CONC 33.6 g/dL (32.0-36.0); Mean Corpuscular Hemoglobin 30.4 pg (27.0-31.0); Mean Corpuscular Volume 90.4 fL (78.0-98.0); Mean Platelet Volume 8.2 fL (7.4-10.4); Platelet Count 192 thou/uL (130-400); RBC Distribution Width 11.1 % (11.5-14.5); White Blood Cell (WBC) Count 7.7 thou/uL (4.8-10.8)
[2019-09-20 06:19] LABS: Anion Gap 12 mmol/L (10-20); BUN (Urea Nitrogen) 8 mg/dL (7.0-18.7); Calc. Creatinine Clearance 139 mL/min (70-130); Calcium 8.2 mg/dL (7.8-10.44); Carbon Dioxide 22 mmol/L (22-29); Chloride 108 mmol/L (98-107); Estimated GFR-MDRD Greater than 90; Glucose 179 mg/dL (70-105); Potassium 3.2 mmol/L (3.5-5.1); Sodium 139 mmol/L (136-145)
[2019-09-20] MEDS ORDERED: Potassium Chloride 20 MEQ TAB PO SCH (08:30)
[2019-09-20] MEDS: Ondansetron PF 4 MG/2 ML Vial IVP PRN (08:34)
[2019-09-20] MEDS: Dexamethasone 4 MG TAB PO SCH (08:34)
[2019-09-20] MEDS: Famotidine 20 MG TAB PO SCH ×2 (08:34→20:51)
[2019-09-20] MEDS: Acetaminophen 500 MG TAB PO PRN (08:49)
[2019-09-20] MEDS: DOPamine 400 MG/D5W 250 ML 250 ML IVPB SCH (10:08)
--- NOTE | 2019-09-20 11:03 | PRG ---
DATE OF SERVICE: 09/20/2019 SUBJECTIVE: Rose Almazan remains in the ICU, awake, alert, responsive. OBJECTIVE: VITAL SIGNS: Sats are on room air, pulse is now 52, blood pressure respiratory rate 19. GENERAL: No distress. CHEST: No wheezing. No crackles. CARDIAC: Normal S1, S2. LABORATORY DATA: Labs unremarkable. ASSESSMENT AND PLAN: Symptomatic bradycardia, now on Isuprel drip. Bojorquez positive pneumonia. Pulmonary will follow in the ICU. Not much to offer. She remains asymptomatic pulmonary carmona. Job ID: [id number]
--- NOTE | 2019-09-20 15:56 | PDOC.CPN ---
- Subjective Date: 09/20/19 Time: 16:00 Interval history: The pt seen and examined. No overnight events. No cardiac complaints. - Objective Allergies/Adverse Reactions: Allergies Allergy/AdvReac Type Severity Reaction Status Date / Time No Known Drug Allergies Allergy Verified 11/21/16 15:12 Visit Medications: Current Medications Acetaminophen (Tylenol) 1,000 mg PO Q6H PRN PRN Reason: Mild Pain (1-3) Last Admin: 09/20/19 08:49 Dose: 1,000 mg Dexamethasone (Decadron) 6 mg PO QAM-WM EVE Last Admin: 09/20/19 08:34 Dose: 6 mg Dextrose/Water (Dextrose 50%) 25 gm SLOW IVP PRN PRN PRN Reason: Hypoglycemia Famotidine (Pepcid) 20 mg PO BID EVE Last Admin: 09/20/19 08:34 Dose: 20 mg Glucagon (Glucagon) 1 mg IM PRN PRN PRN Reason: Hypoglycemia Sodium Chloride (Normal Saline 0.9%) 1,000 mls @ 100 mls/hr IV .Q10H EVE Last Admin: 09/19/19 22:17 Dose: 1,000 mls Dextrose/Water (D5w) 1,000 mls @ 0 mls/hr IV .Q0M PRN PRN Reason: Hypoglycemia Dopamine HCl/Dextrose (Dopamine 400 Mg/D5w 250 Ml) 250 mls @ 7.753 mls/hr IVPB INF EVE; Protocol Last Admin: 09/20/19 10:08 Dose: 250 mls Isoproterenol HCl 2 mg/ (Dextrose/Water) 510 mls @ 0 mls/hr IVPB INF EVE; Protocol Last Admin: 09/19/19 22:17 Dose: 510 mls Insulin Human Lispro (Humalog) 0 units SC .MILD SLIDING SCALE PRN PRN Reason: Mild Correctional Scale Last Admin: 09/20/19 05:54 Dose: 2 units Insulin Human Lispro (Humalog) 0 units SC .BEDTIME SLIDING SC PRN PRN Reason: Bedtime Correctional Scale Last Admin: 09/19/19 20:08 Dose: 2 units Ondansetron HCl (Zofran Odt) 4 mg PO Q6H PRN PRN Reason: Nausea/Vomiting Ondansetron HCl (Zofran) 4 mg IVP Q6H PRN PRN Reason: Nausea/Vomiting Last Admin: 09/20/19 08:34 Dose: 4 mg Vital Signs & Weight: Vital Signs Temp Pulse Ox 09/20/19 08:00 98.1 F 09/20/19 07:31 98 09/20/19 04:00 98.4 F Weight 182 lb 5.156 oz - Quality Measures CV meds: Beta Nafisa: Yes, Statin: Yes - Physical Exam General: alert & oriented x3 HEENT: mucus membranes moist Neck: supple neck Cardiac: regular rate and rhythm, S1/S2 Lungs: clear to auscultation Neuro: cranial nerve 2-12 intact Extremities: no edema - Labs Result Diagrams: 09/20/19 05:40 09/20/19 05:40 Troponin/CKMB Troponin I Less than 0.010 ng/mL (< 0.028) 09/18/19 07:06 - Telemetry Sinus rhythms and dysrhythmias: sinus rhythm - Assessment/Plan Assessment/Plan: 1. Sinus bradycardia: HR has been 60-70s, asymptomatic with Isuprel drip ( appreciate Dr Alcantar's input!); Dopamine drip has been weaning down. The pt denied dizziness today. She may likely need a pacemaker. 2. Covid-19 +. She complains of fatigue but no fever or cough. 3. Type 2 DM MAR reviewed I agree with the A/P by the TRANSFORMATION CONSULTANT. Appreciate Dr. Alcantar's assistance. We will see what the HR soes and whether she remains asymptomatic once the dopamine and isuprel are d/c'd. yo
--- NOTE | 2019-09-20 17:13 | PDOC.EP ---
- Subjective Date: 09/20/19 Time: 17:11 Interval History: Better today. Fatigue and dyspnea improved. Not requiring supplemental oxygen - Objective Allergies/Adverse Reactions: Allergies Allergy/AdvReac Type Severity Reaction Status Date / Time No Known Drug Allergies Allergy Verified 11/21/16 15:12 Current Medications Acetaminophen (Tylenol) 1,000 mg PO Q6H PRN PRN Reason: Mild Pain (1-3) Last Admin: 09/20/19 08:49 Dose: 1,000 mg Dexamethasone (Decadron) 6 mg PO QAM-WM [facility] Last Admin: 09/20/19 08:34 Dose: 6 mg Dextrose/Water (Dextrose 50%) 25 gm SLOW IVP PRN PRN PRN Reason: Hypoglycemia Famotidine (Pepcid) 20 mg PO BID [facility] Last Admin: 09/20/19 08:34 Dose: 20 mg Glucagon (Glucagon) 1 mg IM PRN PRN PRN Reason: Hypoglycemia Sodium Chloride (Normal Saline 0.9%) 1,000 mls @ 100 mls/hr IV .Q10H EVE Last Admin: 09/19/19 22:17 Dose: 1,000 mls Dextrose/Water (D5w) 1,000 mls @ 0 mls/hr IV .Q0M PRN PRN Reason: Hypoglycemia Dopamine HCl/Dextrose (Dopamine 400 Mg/D5w 250 Ml) 250 mls @ 7.753 mls/hr IVPB INF EVE; Protocol Last Admin: 09/20/19 10:08 Dose: 250 mls Isoproterenol HCl 2 mg/ (Dextrose/Water) 510 mls @ 0 mls/hr IVPB INF EVE; Protocol Last Admin: 09/19/19 22:17 Dose: 510 mls Insulin Human Lispro (Humalog) 0 units SC .MILD SLIDING SCALE PRN PRN Reason: Mild Correctional Scale Last Admin: 09/20/19 16:50 Dose: 3 units Insulin Human Lispro (Humalog) 0 units SC .BEDTIME SLIDING SC PRN PRN Reason: Bedtime Correctional Scale Last Admin: 09/19/19 20:08 Dose: 2 units Ondansetron HCl (Zofran Odt) 4 mg PO Q6H PRN PRN Reason: Nausea/Vomiting Ondansetron HCl (Zofran) 4 mg IVP Q6H PRN PRN Reason: Nausea/Vomiting Last Admin: 09/20/19 08:34 Dose: 4 mg Vital Signs & Weight: Vital Signs Temp Pulse Ox 09/20/19 16:00 98 F 09/20/19 12:00 97.9 F 09/20/19 08:00 98.1 F 09/20/19 07:31 98 Weight 182 lb 5.156 oz I/O: I/O 09/19/19 09/20/19 09/21/19 06:59 06:59 06:59 Intake Total 4350 4608 840 Output Total 7020 3620 1950 Balance -2670 988 -1110 - Labs Result Diagrams: 09/20/19 05:40 09/20/19 05:40 - Assessment/Plan Assessment/Plan: Sinus bradycardia/Hypotension: Heart rates 60's and 70's with Isuprel at 1 mcg/ min. Dopamine weaned to 4 mg/kg/min. Plan to discontinue Isuprel tomorrow and observe heart rate.
--- NOTE | 2019-09-20 18:12 | PDOC.HOSPP ---
- Subjective Encounter Date: 09/20/19 Encounter Time: 08:00 Subjective: THe patient is doing much better today. SHe states her weakness has markedly improved. She denies dyspnea on exertion - Objective Vital Signs & Weight: Vital Signs (12 hours) Temp Pulse Ox 09/20/19 16:00 98 F 09/20/19 12:00 97.9 F 09/20/19 08:00 98.1 F 09/20/19 07:31 98 Weight Weight 182 lb 5.156 oz Most Recent Monitor Data Heart Rate from ECG 66 NIBP 118/66 NIBP BP-Mean 83 Respiration from ECG 21 SpO2 100 I&O: 09/19/19 09/20/19 09/21/19 06:59 06:59 06:59 Intake Total 4350 4608 840 Output Total 7072 9380 1950 Balance -2670 988 1110 Result Diagrams: 09/20/19 05:40 09/20/19 05:40 Additional Labs: Accuchecks 09/20/19 09/20/19 09/20/19 16:46 10:20 05:41 POC Glucose 202 H 201 H 171 H 09/19/19 09/19/19 09/19/19 20:20 17:45 10:32 POC Glucose 186 H 183 H 141 H 09/19/19 09/18/19 09/18/19 05:17 19:48 08:45 POC Glucose 160 H 248 H 74 09/18/19 05:48 POC Glucose 82 Hospitalist ROS - Review of Systems Constitutional: denies: fever, chills - Medication Medications: Active Medications Generic Name Dose Route Start Last Admin Trade Name Zahra PRN Reason Stop Dose Admin Acetaminophen 1,000 mg 09/18/19 04:28 09/20/19 08:49 Tylenol PO 1,000 mg Q6H PRN Administration Mild Pain (1-3) Dexamethasone 6 mg 09/19/19 08:00 09/20/19 08:34 Decadron PO 6 mg QAM-WM EVE Administration Famotidine 20 mg 09/18/19 09:00 09/20/19 08:34 Pepcid PO 20 mg BID EVE Administration Sodium Chloride 1,000 mls @ 100 mls/hr 09/18/19 04:30 09/19/19 22:17 Normal Saline 0.9% IV 1,000 mls .Q10H EVE Administration Dopamine HCl/Dextrose 250 mls @ 7.753 mls/hr 09/18/19 13:15 09/20/19 10:08 Dopamine 400 Mg/D5w 250 Ml IVPB 250 mls INF EVE Administration Protocol 2.5 MCG/KG/MIN Isoproterenol HCl 2 mg/ 510 mls @ 0 mls/hr 09/19/19 17:00 09/19/19 22:17 Dextrose/Water IVPB 510 mls INF EVE Administration Protocol Titrate Insulin Human Lispro 0 units 09/18/19 04:45 09/20/19 16:50 Humalog SC 3 units .MILD SLIDING SCALE PRN Administration Mild Correctional Scale Insulin Human Lispro 0 units 09/18/19 04:45 09/19/19 20:08 Humalog SC 2 units .BEDTIME SLIDING SC PRN Administration Bedtime Correctional Scale Ondansetron HCl 4 mg 09/18/19 04:28 09/20/19 08:34 Zofran IVP 4 mg Q6H PRN Administration Nausea/Vomiting - Exam General Appearance: NAD, awake alert Eye: PERRL, anicteric sclera ENT: normocephalic atraumatic, no oropharyngeal lesions Neck: no JVD Heart: RRR, no murmur, no gallops, no rubs Respiratory: CTAB, no wheezes, no rales, no ronchi Gastrointestinal: soft, non-tender, non-distended, normal bowel sounds Extremities: no cyanosis, no clubbing, no edema Skin: normal turgor, no lesions, no rashes Hosp A/P - Plan This is a 44 year old female with past medical history of diabetes recently diagnosed with COVID who presented with weakness, she was found to be bradycardic as well Generalized weakness - possibly from COVID vs bradycardia - currently not requiring oxygen. Chest X ray normal - TSH elevated, but free T3 and T4 normal. Repeat TSH 09/18 normal - continue dexamethasone Bradycardia = possibly from COVID - on dopamine. Isoproterenol added by EP Hypokalemia - potassium 3.2, replaced Leukopenia - resolved Type II diabetes - continue insulin sliding sclae
[2019-09-21] MEDS: Acetaminophen 500 MG TAB PO PRN (04:29)
[2019-09-21 04:34] LABS: Hemoglobin 13.4 g/dL (12.0-16.0); Mean Corpuscular HGB CONC 34.5 g/dL (32.0-36.0); Mean Corpuscular Hemoglobin 31.6 pg (27.0-31.0); Mean Corpuscular Volume 91.5 fL (78.0-98.0); Mean Platelet Volume 8.2 fL (7.4-10.4); Platelet Count 190 thou/uL (130-400); RBC Distribution Width 11.2 % (11.5-14.5); Red Blood Cell (RBC) Count 4.23 mill/uL (4.20-5.40); White Blood Cell (WBC) Count 6.4 thou/uL (4.8-10.8)
[2019-09-21 04:54] LABS: Anion Gap 11 mmol/L (10-20); BUN (Urea Nitrogen) 7 mg/dL (7.0-18.7); Calc. Creatinine Clearance 152 mL/min (70-130); Calcium 8.7 mg/dL (7.8-10.44); Carbon Dioxide 23 mmol/L (22-29); Chloride 107 mmol/L (98-107); Estimated GFR-MDRD Greater than 90; Glucose 135 mg/dL (70-105); Potassium 3.1 mmol/L (3.5-5.1); Sodium 138 mmol/L (136-145)
[2019-09-21] MEDS: DOPamine 400 MG/D5W 250 ML 250 ML IVPB SCH (05:11)
[2019-09-21] MEDS: Sodium Chloride 0.9% 1,000 ML IV SCH ×2 (05:11→13:39)
--- NOTE | 2019-09-21 07:30 | PDOC.EP ---
- Subjective Date: 09/21/19 Time: 07:28 Interval History: Slightly improved. Fatigue persists. No syncope, presyncope or falls - Objective Allergies/Adverse Reactions: Allergies Allergy/AdvReac Type Severity Reaction Status Date / Time No Known Drug Allergies Allergy Verified 11/21/16 15:12 Current Medications Acetaminophen (Tylenol) 1,000 mg PO Q6H PRN PRN Reason: Mild Pain (1-3) Last Admin: 09/21/19 04:29 Dose: 1,000 mg Dexamethasone (Decadron) 6 mg PO QAM-WM EVE Last Admin: 09/20/19 08:34 Dose: 6 mg Dextrose/Water (Dextrose 50%) 25 gm SLOW IVP PRN PRN PRN Reason: Hypoglycemia Famotidine (Pepcid) 20 mg PO BID [facility] Last Admin: 09/20/19 20:51 Dose: 20 mg Glucagon (Glucagon) 1 mg IM PRN PRN PRN Reason: Hypoglycemia Sodium Chloride (Normal Saline 0.9%) 1,000 mls @ 100 mls/hr IV .Q10H EVE Last Admin: 09/21/19 05:11 Dose: 1,000 mls Dextrose/Water (D5w) 1,000 mls @ 0 mls/hr IV .Q0M PRN PRN Reason: Hypoglycemia Dopamine HCl/Dextrose (Dopamine 400 Mg/D5w 250 Ml) 250 mls @ 7.753 mls/hr IVPB INF EVE; Protocol Last Admin: 09/21/19 05:11 Dose: 250 mls Isoproterenol HCl 2 mg/ (Dextrose/Water) 510 mls @ 0 mls/hr IVPB INF EVE; Protocol Last Admin: 09/19/19 22:17 Dose: 510 mls Insulin Human Lispro (Humalog) 0 units SC .MILD SLIDING SCALE PRN PRN Reason: Mild Correctional Scale Last Admin: 09/20/19 16:50 Dose: 3 units Insulin Human Lispro (Humalog) 0 units SC .BEDTIME SLIDING SC PRN PRN Reason: Bedtime Correctional Scale Last Admin: 09/19/19 20:08 Dose: 2 units Ondansetron HCl (Zofran Odt) 4 mg PO Q6H PRN PRN Reason: Nausea/Vomiting Last Admin: 09/20/19 22:22 Dose: 4 mg Ondansetron HCl (Zofran) 4 mg IVP Q6H PRN PRN Reason: Nausea/Vomiting Last Admin: 09/20/19 08:34 Dose: 4 mg Vital Signs & Weight: Vital Signs Temp Pulse Ox 09/21/19 05:00 98 F 09/21/19 00:00 98.1 F 09/20/19 23:22 95 09/20/19 20:00 98.1 F Weight 182 lb 5.156 oz I/O: I/O 09/20/19 09/21/19 09/22/19 06:59 06:59 06:59 Intake Total 4608 3194.8 Output Total 3620 3910 Balance 988 -715.2 - Labs Result Diagrams: 09/21/19 04:00 09/21/19 04:00 - Assessment/Plan Assessment/Plan: Sinus bradycardia/Hypotension: Improved. Wean dopamine as tolerated today. Wean Isuprel later today if tolerates weaning of dopamine.
[2019-09-21] MEDS: Dexamethasone 4 MG TAB PO SCH (08:24)
[2019-09-21] MEDS: Famotidine 20 MG TAB PO SCH ×2 (08:24→21:06)
[2019-09-21] MEDS: Potassium Chloride 20 MEQ TAB PO SCH ×2 (08:24→17:06)
--- NOTE | 2019-09-21 10:03 | PRG ---
DATE OF SERVICE: 09/21/2019 SUBJECTIVE: Rose Almazan remains in the ICU with symptomatic bradycardia. Sats are 100%, pulse is improved at 74, blood pressure 100/59. She is rocha positive pneumonia, but no respiratory distress. EP signed the patient yesterday. She is presently on dopamine and Isuprel. We will continue to follow while in the ICU. Nothing additional to offer. Job ID: [id number]
--- NOTE | 2019-09-21 13:32 | PDOC.CPN ---
- Subjective Date: 09/21/19 Time: 13:33 Interval history: The pt seen and examined. No overnight events. No cardiac complaints. - Objective Allergies/Adverse Reactions: Allergies Allergy/AdvReac Type Severity Reaction Status Date / Time No Known Drug Allergies Allergy Verified 11/21/16 15:12 Visit Medications: Current Medications Acetaminophen (Tylenol) 1,000 mg PO Q6H PRN PRN Reason: Mild Pain (1-3) Last Admin: 09/21/19 04:29 Dose: 1,000 mg Dexamethasone (Decadron) 6 mg PO QAM-WM EVE Last Admin: 09/21/19 08:24 Dose: 6 mg Dextrose/Water (Dextrose 50%) 25 gm SLOW IVP PRN PRN PRN Reason: Hypoglycemia Famotidine (Pepcid) 20 mg PO BID [facility] Last Admin: 09/21/19 08:24 Dose: 20 mg Glucagon (Glucagon) 1 mg IM PRN PRN PRN Reason: Hypoglycemia Sodium Chloride (Normal Saline 0.9%) 1,000 mls @ 100 mls/hr IV .Q10H EVE Last Admin: 09/21/19 05:11 Dose: 1,000 mls Dextrose/Water (D5w) 1,000 mls @ 0 mls/hr IV .Q0M PRN PRN Reason: Hypoglycemia Dopamine HCl/Dextrose (Dopamine 400 Mg/D5w 250 Ml) 250 mls @ 7.753 mls/hr IVPB INF EVE; Protocol Last Admin: 09/21/19 05:11 Dose: 250 mls Isoproterenol HCl 1 mg/ (Dextrose/Water) 255 mls @ 0 mls/hr IVPB INF EVE; Protocol Insulin Human Lispro (Humalog) 0 units SC .MILD SLIDING SCALE PRN PRN Reason: Mild Correctional Scale Last Admin: 09/20/19 16:50 Dose: 3 units Insulin Human Lispro (Humalog) 0 units SC .BEDTIME SLIDING SC PRN PRN Reason: Bedtime Correctional Scale Last Admin: 09/19/19 20:08 Dose: 2 units Ondansetron HCl (Zofran Odt) 4 mg PO Q6H PRN PRN Reason: Nausea/Vomiting Last Admin: 09/20/19 22:22 Dose: 4 mg Ondansetron HCl (Zofran) 4 mg IVP Q6H PRN PRN Reason: Nausea/Vomiting Last Admin: 09/20/19 08:34 Dose: 4 mg Potassium Chloride (K-Dur) 40 meq PO BID-WM EVE Last Admin: 09/21/19 08:24 Dose: 40 meq Sodium Chloride (Flush - Normal Saline) 10 ml IVF Q12HR EVE Sodium Chloride (Flush - Normal Saline) 10 ml IVF PRN PRN PRN Reason: Saline Flush Vital Signs & Weight: Vital Signs Temp 09/21/19 10:48 98.3 F 09/21/19 08:00 98.1 F 09/21/19 05:00 98 F Weight 182 lb 5.156 oz - Quality Measures CV meds: Beta Nafisa: Yes, Statin: Yes - Physical Exam General: alert & oriented x3 HEENT: mucus membranes moist Cardiac: regular rate and rhythm, S1/S2 Lungs: clear to auscultation Neuro: cranial nerve 2-12 intact Extremities: no edema - Labs Result Diagrams: 09/21/19 04:00 09/21/19 04:00 Troponin/CKMB Troponin I Less than 0.010 ng/mL (< 0.028) 09/18/19 07:06 - Assessment/Plan Assessment/Plan: 1. Sinus bradycardia: HR has been 60-70s, asymptomatic with Isuprel drip ( appreciate Dr Alcantar's input); Dopamine drip has been weaning down. The pt denied dizziness today. She may likely need a pacemaker by Dr Alcantar. 2. Covid-19 +. She complains of fatigue but no fever or cough. 3. Type 2 DM MAR reviewed I have reviewed the records and notes from the staff. I agree with the A/P by the ATTENUATOR. Dr. Randhawa is monitoring the HR and adjusting the inotropes. If he feels that she needs a pacemaker then he will arrange that. I will sign off. Thank you . MONIQUE
--- NOTE | 2019-09-21 15:25 | PDOC.HOSPP ---
- Subjective Encounter Date: 09/21/19 Encounter Time: 11:00 Subjective: The patient states she feels stronger. Her isopreterenol was discontinued. Dopamine remained at 4. She states this morning she felt dizzy and lightheaded while ambulating and moving to the chair. At rest she states she feels okay She has a mild cough. Heart rate was noted to be 47 at time of my evaluation - Objective Vital Signs & Weight: Vital Signs (12 hours) Temp 09/21/19 10:48 98.3 F 09/21/19 08:00 98.1 F 09/21/19 05:00 98 F Weight Weight 182 lb 5.156 oz Most Recent Monitor Data Heart Rate from ECG 62 NIBP 100/60 NIBP BP-Mean 73 Respiration from ECG 18 SpO2 100 I&O: 09/20/19 09/21/19 09/22/19 06:59 06:59 06:59 Intake Total 4608 3194.8 480 Output Total 3620 3910 800 Balance 988 -715.2 -320 Result Diagrams: 09/21/19 04:00 09/21/19 04:00 Additional Labs: Accuchecks 09/21/19 09/20/19 09/20/19 05:24 21:41 16:46 POC Glucose 127 H 170 H 202 H Hospitalist ROS - Review of Systems Constitutional: denies: fever, chills - Medication Medications: Active Medications Generic Name Dose Route Start Last Admin Trade Name Freq PRN Reason Stop Dose Admin Acetaminophen 1,000 mg 09/18/19 04:28 09/21/19 04:29 Tylenol PO 1,000 mg Q6H PRN Administration Mild Pain (1-3) Dexamethasone 6 mg 09/19/19 08:00 09/21/19 08:24 Decadron PO 6 mg QAM-WM EVE Administration Famotidine 20 mg 09/18/19 09:00 09/21/19 08:24 Pepcid PO 20 mg BID EVE Administration Sodium Chloride 1,000 mls @ 100 mls/hr 09/18/19 04:30 09/21/19 13:39 Normal Saline 0.9% IV 1,000 mls .Q10H EVE Administration Dopamine HCl/Dextrose 250 mls @ 7.753 mls/hr 09/18/19 13:15 09/21/19 05:11 Dopamine 400 Mg/D5w 250 Ml IVPB 250 mls INF EVE Administration Protocol 2.5 MCG/KG/MIN Insulin Human Lispro 0 units 09/18/19 04:45 09/20/19 16:50 Humalog SC 3 units .MILD SLIDING SCALE PRN Administration Mild Correctional Scale Insulin Human Lispro 0 units 09/18/19 04:45 09/19/19 20:08 Humalog SC 2 units .BEDTIME SLIDING SC PRN Administration Bedtime Correctional Scale Ondansetron HCl 4 mg 09/18/19 04:28 09/20/19 22:22 Zofran Odt PO 4 mg Q6H PRN Administration Nausea/Vomiting Ondansetron HCl 4 mg 09/18/19 04:28 09/20/19 08:34 Zofran IVP 4 mg Q6H PRN Administration Nausea/Vomiting Potassium Chloride 40 meq 09/21/19 08:00 09/21/19 08:24 K-Dur PO 40 meq BID-WM EVE Administration - Exam General Appearance: NAD, awake alert Eye: PERRL, anicteric sclera ENT: normocephalic atraumatic, no oropharyngeal lesions Neck: no JVD Heart: RRR, no murmur, no gallops, no rubs Respiratory - other findings: sinus bradycardia Gastrointestinal: soft, non-tender, non-distended, normal bowel sounds Extremities: no cyanosis, no clubbing, no edema Skin: normal turgor, no lesions, no rashes Neurological: cranial nerve grossly intact, normal sensation to touch, no focal deficits, no new deficit Hosp A/P - Plan This is a 44 year old female with past medical history of diabetes recently diagnosed with COVID who presented with weakness, she was found to be bradycardic as well Generalized weakness from COVID vs bradycardia - improved - still weak when ambulating due to low heart rate - continue PT. Chest x ray normal - TSH normal on 09/18 - continue dexamethasone Bradycardia - possibly from COVID - isoproterenol discontinued today and dopamine remains at 4. Heart rate still 40 - TSH normal 09/18 - currently no need for pacemaker, await recovery from covid infection Hypokalemia - potassium 3.1, on potassium supplementation Leukopenia - resolved Type II diabetes - continue insulin sliding scale, BS 120-170 DIspo: pending improvement in heart rate
[2019-09-21] MEDS: HumaLOG 300 UNITS/3 ML VIAL SC PRN (17:02)
[2019-09-21] MEDS: DEXTROSE 5% IVPB SCH (22:15)
[2019-09-21] MEDS: ISOPROTERENOL IVPB SCH (22:15)
[2019-09-21] MEDS: WATER IVPB SCH (22:15)
[2019-09-22] MEDS: Sodium Chloride 0.9% 1,000 ML IV SCH ×2 (01:43→18:07)
[2019-09-22] MEDS: DOPamine 400 MG/D5W 250 ML 250 ML IVPB SCH (01:43)
[2019-09-22 04:05] LABS: Hemoglobin 13.6 g/dL (12.0-16.0); Mean Corpuscular HGB CONC 32.9 g/dL (32.0-36.0); Mean Corpuscular Hemoglobin 30.1 pg (27.0-31.0); Mean Corpuscular Volume 91.6 fL (78.0-98.0); Mean Platelet Volume 8.1 fL (7.4-10.4); Platelet Count 206 thou/uL (130-400); RBC Distribution Width 11.2 % (11.5-14.5); Red Blood Cell (RBC) Count 4.52 mill/uL (4.20-5.40); White Blood Cell (WBC) Count 7.5 thou/uL (4.8-10.8)
[2019-09-22 04:32] LABS: Anion Gap 11 mmol/L (10-20); BUN (Urea Nitrogen) 11 mg/dL (7.0-18.7); Calc. Creatinine Clearance 143 mL/min (70-130); Calcium 8.6 mg/dL (7.8-10.44); Carbon Dioxide 23 mmol/L (22-29); Chloride 108 mmol/L (98-107); Estimated GFR-MDRD Greater than 90; Glucose 142 mg/dL (70-105); Potassium 3.7 mmol/L (3.5-5.1); Sodium 138 mmol/L (136-145)
--- NOTE | 2019-09-22 07:59 | PDOC.EP ---
- Subjective Date: 09/22/19 Time: 07:57 Interval History: Fatigue and dizziness persist. Isuprel restarted last night for symptomatic bradycardia. - Objective Allergies/Adverse Reactions: Allergies Allergy/AdvReac Type Severity Reaction Status Date / Time No Known Drug Allergies Allergy Verified 11/21/16 15:12 Current Medications Acetaminophen (Tylenol) 1,000 mg PO Q6H PRN PRN Reason: Mild Pain (1-3) Last Admin: 09/21/19 04:29 Dose: 1,000 mg Dexamethasone (Decadron) 6 mg PO QAM-WM EVE Last Admin: 09/21/19 08:24 Dose: 6 mg Dextrose/Water (Dextrose 50%) 25 gm SLOW IVP PRN PRN PRN Reason: Hypoglycemia Famotidine (Pepcid) 20 mg PO BID EVE Last Admin: 09/21/19 21:06 Dose: 20 mg Glucagon (Glucagon) 1 mg IM PRN PRN PRN Reason: Hypoglycemia Sodium Chloride (Normal Saline 0.9%) 1,000 mls @ 100 mls/hr IV .Q10H EVE Last Admin: 09/22/19 01:43 Dose: 1,000 mls Dextrose/Water (D5w) 1,000 mls @ 0 mls/hr IV .Q0M PRN PRN Reason: Hypoglycemia Dopamine HCl/Dextrose (Dopamine 400 Mg/D5w 250 Ml) 250 mls @ 7.753 mls/hr IVPB INF EVE; Protocol Last Admin: 09/22/19 01:43 Dose: 250 mls Isoproterenol HCl 1 mg/ (Dextrose/Water) 255 mls @ 0 mls/hr IVPB INF EVE; Protocol Last Admin: 09/21/19 22:15 Dose: 255 mls Insulin Human Lispro (Humalog) 0 units SC .MILD SLIDING SCALE PRN PRN Reason: Mild Correctional Scale Last Admin: 09/21/19 17:02 Dose: 2 units Insulin Human Lispro (Humalog) 0 units SC .BEDTIME SLIDING SC PRN PRN Reason: Bedtime Correctional Scale Last Admin: 09/19/19 20:08 Dose: 2 units Ondansetron HCl (Zofran Odt) 4 mg PO Q6H PRN PRN Reason: Nausea/Vomiting Last Admin: 09/20/19 22:22 Dose: 4 mg Ondansetron HCl (Zofran) 4 mg IVP Q6H PRN PRN Reason: Nausea/Vomiting Last Admin: 09/20/19 08:34 Dose: 4 mg Potassium Chloride (K-Dur) 40 meq PO BID-WM EVE Last Admin: 09/21/19 17:06 Dose: 40 meq Sodium Chloride (Flush - Normal Saline) 10 ml IVF Q12HR EVE Last Admin: 09/21/19 21:06 Dose: 10 ml Sodium Chloride (Flush - Normal Saline) 10 ml IVF PRN PRN PRN Reason: Saline Flush Vital Signs & Weight: Vital Signs Temp 09/22/19 04:00 98.1 F 09/22/19 00:00 98.2 F 09/21/19 20:00 98.2 F Weight 182 lb 5.156 oz I/O: I/O 09/21/19 09/22/19 09/23/19 06:59 06:59 06:59 Intake Total 3194.8 3097.8 Output Total 3910 2900 Balance -715.2 197.8 - Labs Result Diagrams: 09/22/19 03:35 09/22/19 03:35 - Assessment/Plan Assessment/Plan: Symptomatic Sinus bradycardia: Wean Isuprel off today. Restart at night if needed for symptomatic bradycardia and heart rate less than 40 sustained. Hypotension: Continue low dose dopamine.
[2019-09-22] MEDS: Famotidine 20 MG TAB PO SCH ×2 (08:14→20:32)
[2019-09-22] MEDS: Potassium Chloride 20 MEQ TAB PO SCH ×2 (08:14→18:07)
[2019-09-22] MEDS: Dexamethasone 4 MG TAB PO SCH (08:14)
--- NOTE | 2019-09-22 10:18 | PRG ---
DATE OF SERVICE: 09/22/2019 SUBJECTIVE: The patient remains in the ICU on Isordil and dopamine drips for bradycardia. She is actually doing well otherwise. OBJECTIVE: VITAL SIGNS: Temperature 98.3, pulse of 58 to 70, blood pressure 108/64. HEENT: Unremarkable. NECK: No adenopathy or JVD. CHEST: Clear anteriorly. CARDIAC: S1 and S2 regular. ABDOMEN: Soft and nontender. EXTREMITIES: No edema. LABORATORY DATA: White blood cell count 7.5, hematocrit 41.5, and platelet count 206. Sodium 138, potassium 3.7, chloride 108, CO2 of 23, BUN 11, creatinine 0.6, glucose 142. ASSESSMENT: COVID-19 infection with main issue being bradycardia. PLAN: We will stop the Isordil drip and wean off dopamine as tolerated. I would be comfortable tolerating fairly low heart rates as I have seen this with numerous COVID patients in the past. The patient continues on dexamethasone. Job ID: [id number]
[2019-09-22] MEDS: HumaLOG 300 UNITS/3 ML VIAL SC PRN (15:56)
--- NOTE | 2019-09-22 16:15 | PDOC.HOSPP ---
- Subjective Encounter Date: 09/22/19 Encounter Time: 11:00 Subjective: The patient states she feels much better. She ambulated to the bedside commode and felt some fatigue, but better than yesterday. She seems to have been placed back on isoproterenol drip Current heart rate is 88 She has mild cough - Objective Vital Signs & Weight: Vital Signs (12 hours) Temp 09/22/19 15:00 97.8 F 09/22/19 11:00 97.9 F 09/22/19 08:00 98.3 F Weight Weight 182 lb 5.156 oz Most Recent Monitor Data Heart Rate from ECG 59 NIBP 117/52 NIBP BP-Mean 73 Respiration from ECG 18 SpO2 100 I&O: 09/21/19 09/22/19 09/23/19 06:59 06:59 06:59 Intake Total 3194.8 3097.8 1529 Output Total 3910 2900 2200 Balance -715.2 197.8 -671 Result Diagrams: 09/22/19 03:35 09/22/19 03:35 Additional Labs: Accuchecks 09/22/19 09/22/19 09/22/19 15:40 10:54 06:15 POC Glucose 192 H 179 H 143 H 09/21/19 09/21/19 09/21/19 21:42 15:53 11:38 POC Glucose 192 H 184 H 147 H Hospitalist ROS - Review of Systems Constitutional: denies: fever, chills - Medication Medications: Active Medications Generic Name Dose Route Start Last Admin Trade Name Freq PRN Reason Stop Dose Admin Acetaminophen 1,000 mg 09/18/19 04:28 09/21/19 04:29 Tylenol PO 1,000 mg Q6H PRN Administration Mild Pain (1-3) Dexamethasone 6 mg 09/19/19 08:00 09/22/19 08:14 Decadron PO 6 mg QAM-WM EVE Administration Famotidine 20 mg 09/18/19 09:00 09/22/19 08:14 Pepcid PO 20 mg BID EVE Administration Dopamine HCl/Dextrose 250 mls @ 7.753 mls/hr 09/18/19 13:15 09/22/19 01:43 Dopamine 400 Mg/D5w 250 Ml IVPB 250 mls INF EVE Administration Protocol 2.5 MCG/KG/MIN Isoproterenol HCl 1 mg/ 255 mls @ 0 mls/hr 09/21/19 11:00 09/21/19 22:15 Dextrose/Water IVPB 255 mls INF EVE Administration Protocol Titrate Insulin Human Lispro 0 units 09/18/19 04:45 09/22/19 15:56 Humalog SC 2 units .MILD SLIDING SCALE PRN Administration Mild Correctional Scale Insulin Human Lispro 0 units 09/18/19 04:45 09/19/19 20:08 Humalog SC 2 units .BEDTIME SLIDING SC PRN Administration Bedtime Correctional Scale Ondansetron HCl 4 mg 09/18/19 04:28 09/20/19 22:22 Zofran Odt PO 4 mg Q6H PRN Administration Nausea/Vomiting Ondansetron HCl 4 mg 09/18/19 04:28 09/20/19 08:34 Zofran IVP 4 mg Q6H PRN Administration Nausea/Vomiting Potassium Chloride 40 meq 09/21/19 08:00 09/22/19 08:14 K-Dur PO 40 meq BID-WM EVE Administration Sodium Chloride 10 ml 09/21/19 21:00 09/22/19 08:15 Flush - Normal Saline IVF 10 ml Q12HR EVE Administration - Exam General Appearance: NAD, awake alert Eye: PERRL, anicteric sclera ENT: normocephalic atraumatic, no oropharyngeal lesions Neck: supple, symmetric, no JVD, no thyromegaly Heart: RRR, no murmur, no gallops, no rubs Respiratory: CTAB, no wheezes, no rales, no ronchi Gastrointestinal: soft, non-tender, non-distended, normal bowel sounds Extremities: no cyanosis, no clubbing, no edema Skin: normal turgor, no lesions, no rashes Neurological: cranial nerve grossly intact, normal sensation to touch, no focal deficits, no new deficit Musculoskeletal: normal tone, normal strength, no muscle wasting Psychiatric: normal affect, normal behavior, A&O x 3 Hosp A/P - Plan This is a 44 year old female with past medical history of diabetes recently diagnosed with COVID who presented with weakness, she was found to be bradycardic as well Generalized weakness from COVID vs bradycardia - improved - improved, continue with physical therapy. Chest x ray normal - TSH normal on 09/18 - continue dexamethasone Bradycardia - possibly from COVID - isoproterenol resumed overnight. She is also on dopamine. Heart rate 88 - TSH normal 09/18 - currently no need for pacemaker, await recovery from covid infection Hypokalemia - resolved Leukopenia - resolved Type II diabetes - continue insulin sliding scale, BS 143-192 DIspo: pending improvement in bradycardia
[2019-09-22] MEDS: Acetaminophen 500 MG TAB PO PRN (22:10)
[2019-09-23] MEDS: WATER IVPB SCH (02:00)
[2019-09-23] MEDS: DEXTROSE 5% IVPB SCH (02:00)
[2019-09-23] MEDS: ISOPROTERENOL IVPB SCH (02:00)
--- NOTE | 2019-09-23 07:51 | PDOC.EP ---
- Subjective Date: 09/23/19 Time: 07:48 Interval History: Symptoms about the same. Up in chair. Fatigued. No respiratory distress. - Objective Allergies/Adverse Reactions: Allergies Allergy/AdvReac Type Severity Reaction Status Date / Time No Known Drug Allergies Allergy Verified 11/21/16 15:12 Current Medications Acetaminophen (Tylenol) 1,000 mg PO Q6H PRN PRN Reason: Mild Pain (1-3) Last Admin: 09/22/19 22:10 Dose: 1,000 mg Dexamethasone (Decadron) 6 mg PO QAM-[facility] Last Admin: 09/22/19 08:14 Dose: 6 mg Dextrose/Water (Dextrose 50%) 25 gm SLOW IVP PRN PRN PRN Reason: Hypoglycemia Famotidine (Pepcid) 20 mg PO BID [facility] Last Admin: 09/22/19 20:32 Dose: 20 mg Glucagon (Glucagon) 1 mg IM PRN PRN PRN Reason: Hypoglycemia Dextrose/Water (D5w) 1,000 mls @ 0 mls/hr IV .Q0M PRN PRN Reason: Hypoglycemia Dopamine HCl/Dextrose (Dopamine 400 Mg/D5w 250 Ml) 250 mls @ 7.753 mls/hr IVPB INF EVE; Protocol Last Admin: 09/22/19 01:43 Dose: 250 mls Isoproterenol HCl 1 mg/ (Dextrose/Water) 255 mls @ 0 mls/hr IVPB INF EVE; Protocol Last Admin: 09/23/19 02:00 Dose: 255 mls Insulin Human Lispro (Humalog) 0 units SC .MILD SLIDING SCALE PRN PRN Reason: Mild Correctional Scale Last Admin: 09/22/19 15:56 Dose: 2 units Insulin Human Lispro (Humalog) 0 units SC .BEDTIME SLIDING SC PRN PRN Reason: Bedtime Correctional Scale Last Admin: 09/19/19 20:08 Dose: 2 units Ondansetron HCl (Zofran Odt) 4 mg PO Q6H PRN PRN Reason: Nausea/Vomiting Last Admin: 09/20/19 22:22 Dose: 4 mg Ondansetron HCl (Zofran) 4 mg IVP Q6H PRN PRN Reason: Nausea/Vomiting Last Admin: 09/20/19 08:34 Dose: 4 mg Potassium Chloride (K-Dur) 40 meq PO BID-[facility] Last Admin: 09/22/19 18:07 Dose: 40 meq Sodium Chloride (Flush - Normal Saline) 10 ml IVF Q12HR EVE Last Admin: 09/22/19 20:33 Dose: 10 ml Sodium Chloride (Flush - Normal Saline) 10 ml IVF PRN PRN PRN Reason: Saline Flush Vital Signs & Weight: Vital Signs Temp 09/23/19 04:00 98.5 F 09/23/19 00:00 98.2 F Weight 182 lb 5.156 oz I/O: I/O 09/22/19 09/23/19 09/24/19 06:59 06:59 06:59 Intake Total 3097.8 1821.4 Output Total 2900 3850 Balance 197.8 -2028.6 - Labs Result Diagrams: 09/22/19 03:35 09/22/19 03:35 - Assessment/Plan Assessment/Plan: Symptomatic bradycardia: Isuprel restarted last night. Discontinue today. Restart as needed to maintain heart rate greater than or equal to 40 BPM. Hypotension: Wean dopamine to off. Restart as needed to maintain SBP greater than or equal to 90 mmHg. Covid 19: On dexamethasone.
[2019-09-23] MEDS: Famotidine 20 MG TAB PO SCH ×2 (08:24→19:56)
[2019-09-23] MEDS: Potassium Chloride 20 MEQ TAB PO SCH ×2 (08:24→17:22)
[2019-09-23] MEDS: Dexamethasone 4 MG TAB PO SCH (08:25)
--- NOTE | 2019-09-23 10:17 | PRG ---
DATE OF SERVICE: SUBJECTIVE: The patient is still having symptomatic bradycardia at night requiring dopamine. She is doing well during the day, is off all IVs at that time. OBJECTIVE: VITAL SIGNS: Temperature is 98.5, pulse 75, blood pressure 109/50, O2 saturation 99%. HEENT: Unremarkable. NECK: No adenopathy or JVD. LUNGS: Clear, O2 saturation 99% on room air. CARDIAC: S1, S2. Regular. ABDOMEN: Soft. EXTREMITIES: No edema. LABORATORY DATA: No new labs were obtained today. ASSESSMENT: Bradycardia secondary to COVID-19 infection. PLAN: Continue vasopressors at night as needed for bradycardia. The patient continues on dexamethasone. The bradycardia will probably resolve as the COVID-19 infection resolves. Job ID: [id number]
--- NOTE | 2019-09-23 15:22 | PDOC.HOSPP ---
- Subjective Encounter Date: 09/23/19 Encounter Time: 15:21 Subjective: still mildly sob - Objective Vital Signs & Weight: Vital Signs (12 hours) Temp BP 09/23/19 12:00 97.6 F 09/23/19 11:07 102/93 H 09/23/19 08:00 97.8 F 09/23/19 04:00 98.5 F Weight Weight 182 lb 5.156 oz Most Recent Monitor Data Heart Rate from ECG 55 NIBP 111/68 NIBP BP-Mean 82 Respiration from ECG 17 SpO2 100 I&O: 09/22/19 09/23/19 09/24/19 06:59 06:59 06:59 Intake Total 3097.8 1821.4 720 Output Total 2900 3850 Balance 197.8 -2028.6 720 Result Diagrams: 09/22/19 03:35 09/22/19 03:35 Additional Labs: Accuchecks 09/22/19 09/22/19 21:23 15:40 POC Glucose 170 H 192 H Hospitalist ROS - Medication Medications: Active Medications Generic Name Dose Route Start Last Admin Trade Name Freq PRN Reason Stop Dose Admin Acetaminophen 1,000 mg 09/18/19 04:28 09/22/19 22:10 Tylenol PO 1,000 mg Q6H PRN Administration Mild Pain (1-3) Dexamethasone 6 mg 09/19/19 08:00 09/23/19 08:25 Decadron PO 6 mg QAM-WM EVE Administration Famotidine 20 mg 09/18/19 09:00 09/23/19 08:24 Pepcid PO 20 mg BID EVE Administration Dopamine HCl/Dextrose 250 mls @ 7.753 mls/hr 09/18/19 13:15 09/22/19 01:43 Dopamine 400 Mg/D5w 250 Ml IVPB 250 mls INF EVE Administration Protocol 2.5 MCG/KG/MIN Isoproterenol HCl 1 mg/ 255 mls @ 0 mls/hr 09/21/19 11:00 09/23/19 02:00 Dextrose/Water IVPB 255 mls INF EVE Administration Protocol Titrate Insulin Human Lispro 0 units 09/18/19 04:45 09/22/19 15:56 Humalog SC 2 units .MILD SLIDING SCALE PRN Administration Mild Correctional Scale Insulin Human Lispro 0 units 09/18/19 04:45 09/19/19 20:08 Humalog SC 2 units .BEDTIME SLIDING SC PRN Administration Bedtime Correctional Scale Ondansetron HCl 4 mg 09/18/19 04:28 09/20/19 22:22 Zofran Odt PO 4 mg Q6H PRN Administration Nausea/Vomiting Ondansetron HCl 4 mg 09/18/19 04:28 09/20/19 08:34 Zofran IVP 4 mg Q6H PRN Administration Nausea/Vomiting Potassium Chloride 40 meq 09/21/19 08:00 09/23/19 08:24 K-Dur PO 40 meq BID-WM EVE Administration Sodium Chloride 10 ml 09/21/19 21:00 09/23/19 08:25 Flush - Normal Saline IVF 10 ml Q12HR EVE Administration - Exam General Appearance: awake alert Neck: no JVD Heart: RRR, no murmur Respiratory - other findings: grossly clear Gastrointestinal: soft, non-tender, normal bowel sounds Extremities: 1+ LE edema Hosp A/P (1) COVID-19 Code(s): U07.1 - COVID-19 Status: Acute (2) Sinus bradycardia Code(s): R00.1 - BRADYCARDIA, UNSPECIFIED Status: Acute (3) DM type 2 (diabetes mellitus, type 2) Status: Acute Qualifiers: Diabetes mellitus local intermodal truck driver insulin use: with local intermodal truck driver use Diabetes mellitus complication status: without complication Qualified Code(s): E11.9 - Type 2 diabetes mellitus without complications; Z79.4 - FPC (current) use of insulin (4) Hypothyroid Code(s): E03.9 - HYPOTHYROIDISM, UNSPECIFIED Status: Chronic Qualifiers: Hypothyroidism type: unspecified Qualified Code(s): E03.9 - Hypothyroidism , unspecified (5) Hypotension Status: Acute - Plan off dopamine/isuprel on steroids cont to monitor
[2019-09-23] MEDS ORDERED: Polyethylene Glycol 3350 17 GM Packet PO PRN (16:59)
[2019-09-24] MEDS: Potassium Chloride 20 MEQ TAB PO SCH ×2 (07:52→17:23)
[2019-09-24] MEDS: Famotidine 20 MG TAB PO SCH ×2 (07:52→21:36)
[2019-09-24] MEDS: Dexamethasone 4 MG TAB PO SCH (07:52)
--- NOTE | 2019-09-24 11:27 | PRG ---
DATE OF SERVICE: 09/24/2019 SUBJECTIVE: This is a 44-year-old female, who is having episodes of bradycardia at nighttime. During the daytime she appears to be and breathing well. OBJECTIVE: GENERAL: She is awake, responsive. VITAL SIGNS: Sats on room air 98%, temperature 98, blood pressure 87/62, and respiratory rate 18. CHEST: No wheezing. No crackles. CARDIAC: Normal S1, S2. No gallops. ABDOMEN: No masses. She is on Decadron, Pepcid, Isuprel drip. ASSESSMENT: 1. Symptomatic bradycardia. Positive coronavirus. No respiratory issues. 2. Nurses are concerned if she may be having bouts of sleep apnea at nighttime accounting for her bradycardia. Therefore, we will try a low-dose nasal CPAP at nighttime. Otherwise, continue supportive care. We will follow up. Job ID: [id number]
[2019-09-24] MEDS: HumaLOG 300 UNITS/3 ML VIAL SC PRN ×2 (11:28→17:24)
--- NOTE | 2019-09-24 13:42 | PDOC.EP ---
- Subjective Date: 09/24/19 Time: 13:38 Interval History: Heart rates in the 30's while asleep. Increases to 60's and 70's with minimal activity. Dyspnea, chest discomfort, dizziness and headache at night. Fatigue today. - Objective Allergies/Adverse Reactions: Allergies Allergy/AdvReac Type Severity Reaction Status Date / Time No Known Drug Allergies Allergy Verified 11/21/16 15:12 Current Medications Acetaminophen (Tylenol) 1,000 mg PO Q6H PRN PRN Reason: Mild Pain (1-3) Last Admin: 09/22/19 22:10 Dose: 1,000 mg Dexamethasone (Decadron) 6 mg PO QAM-WM EVE Last Admin: 09/24/19 07:52 Dose: 6 mg Dextrose/Water (Dextrose 50%) 25 gm SLOW IVP PRN PRN PRN Reason: Hypoglycemia Famotidine (Pepcid) 20 mg PO BID EVE Last Admin: 09/24/19 07:52 Dose: 20 mg Glucagon (Glucagon) 1 mg IM PRN PRN PRN Reason: Hypoglycemia Dextrose/Water (D5w) 1,000 mls @ 0 mls/hr IV .Q0M PRN PRN Reason: Hypoglycemia Dopamine HCl/Dextrose (Dopamine 400 Mg/D5w 250 Ml) 250 mls @ 7.753 mls/hr IVPB INF EVE; Protocol Last Admin: 09/22/19 01:43 Dose: 250 mls Isoproterenol HCl 1 mg/ (Dextrose/Water) 255 mls @ 0 mls/hr IVPB INF EVE; Protocol Last Admin: 09/23/19 02:00 Dose: 255 mls Insulin Human Lispro (Humalog) 0 units SC .MILD SLIDING SCALE PRN PRN Reason: Mild Correctional Scale Last Admin: 09/24/19 11:28 Dose: 3 units Insulin Human Lispro (Humalog) 0 units SC .BEDTIME SLIDING SC PRN PRN Reason: Bedtime Correctional Scale Last Admin: 09/19/19 20:08 Dose: 2 units Ondansetron HCl (Zofran Odt) 4 mg PO Q6H PRN PRN Reason: Nausea/Vomiting Last Admin: 09/20/19 22:22 Dose: 4 mg Ondansetron HCl (Zofran) 4 mg IVP Q6H PRN PRN Reason: Nausea/Vomiting Last Admin: 09/20/19 08:34 Dose: 4 mg Polyethylene Glycol (Miralax) 17 gm PO DAILYPRN PRN PRN Reason: Constipation Potassium Chloride (K-Dur) 40 meq PO BID-WM EVE Last Admin: 09/24/19 07:52 Dose: 40 meq Sodium Chloride (Flush - Normal Saline) 10 ml IVF Q12HR EVE Last Admin: 09/24/19 07:53 Dose: 10 ml Sodium Chloride (Flush - Normal Saline) 10 ml IVF PRN PRN PRN Reason: Saline Flush Vital Signs & Weight: Vital Signs Temp Pulse Ox 09/24/19 12:00 97.7 F 09/24/19 08:00 98.6 F 100 09/24/19 04:00 98.0 F 100 Weight 182 lb 5.156 oz I/O: I/O 09/23/19 09/24/19 09/25/19 06:59 06:59 06:59 Intake Total 1821.4 1604.3 720 Output Total 3850 1700 2400 Balance -2028.6 -95.7 -1680 - Labs Result Diagrams: 09/22/19 03:35 09/22/19 03:35 - Assessment/Plan Assessment/Plan: Sinus bradycardia: Heart rate in 30's while asleep. Increases with minimal exertion. She has a history of asymptomatic bradycardia. Covid 19: on dexamethasone I recommend not treating bradycardia while asleep unless heart rate less than 30. No indication for permanent pacemaker. Okay to transfer out of ICU from my standpoint. Sign off. Please reconsult with questions or concerns.
--- NOTE | 2019-09-24 18:43 | PDOC.HOSPP ---
- Subjective Encounter Date: 09/24/19 Encounter Time: 19:00 Subjective: f/u sinus bradycardia previously managed with Isoproterenol/Dopamine. EP recommending not treating aggressively. Receiving Dexa for COVID-19. - Objective Vital Signs & Weight: Vital Signs (12 hours) Temp Pulse Ox 09/24/19 16:00 98.0 F 09/24/19 12:00 97.7 F 09/24/19 08:00 98.6 F 100 Weight Weight 182 lb 5.156 oz Most Recent Monitor Data Heart Rate from ECG 53 NIBP 94/40 NIBP BP-Mean 58 Respiration from ECG 20 SpO2 100 I&O: 09/23/19 09/24/19 09/25/19 06:59 06:59 06:59 Intake Total 1821.4 1604.3 1200 Output Total 3850 1700 3150 Balance -2028.6 -95.7 -1950 Result Diagrams: 09/22/19 03:35 09/22/19 03:35 Additional Labs: Accuchecks 09/24/19 09/23/19 09/23/19 05:33 20:18 15:59 POC Glucose 126 H 194 H 299 H 09/23/19 09/23/19 12:16 06:07 POC Glucose 172 H 125 H EKG Reviewed by me: Yes (Tele - Sinus bradycardia in 60's) Hospitalist ROS - Medication Medications: Active Medications Generic Name Dose Route Start Last Admin Trade Name Freq PRN Reason Stop Dose Admin Acetaminophen 1,000 mg 09/18/19 04:28 09/22/19 22:10 Tylenol PO 1,000 mg Q6H PRN Administration Mild Pain (1-3) Dexamethasone 6 mg 09/19/19 08:00 09/24/19 07:52 Decadron PO 6 mg QAM-WM EVE Administration Famotidine 20 mg 09/18/19 09:00 09/24/19 07:52 Pepcid PO 20 mg BID EVE Administration Dopamine HCl/Dextrose 250 mls @ 7.753 mls/hr 09/18/19 13:15 09/22/19 01:43 Dopamine 400 Mg/D5w 250 Ml IVPB 250 mls INF EVE Administration Protocol 2.5 MCG/KG/MIN Isoproterenol HCl 1 mg/ 255 mls @ 0 mls/hr 09/21/19 11:00 09/23/19 02:00 Dextrose/Water IVPB 255 mls INF EVE Administration Protocol Titrate Insulin Human Lispro 0 units 09/18/19 04:45 09/24/19 17:24 Humalog SC 3 units .MILD SLIDING SCALE PRN Administration Mild Correctional Scale Insulin Human Lispro 0 units 09/18/19 04:45 09/19/19 20:08 Humalog SC 2 units .BEDTIME SLIDING SC PRN Administration Bedtime Correctional Scale Ondansetron HCl 4 mg 09/18/19 04:28 09/20/19 22:22 Zofran Odt PO 4 mg Q6H PRN Administration Nausea/Vomiting Ondansetron HCl 4 mg 09/18/19 04:28 09/20/19 08:34 Zofran IVP 4 mg Q6H PRN Administration Nausea/Vomiting Potassium Chloride 40 meq 09/21/19 08:00 09/24/19 17:23 K-Dur PO Not Given BID-WM EVE Sodium Chloride 10 ml 09/21/19 21:00 09/24/19 07:53 Flush - Normal Saline IVF 10 ml Q12HR EVE Administration - Exam General Appearance: NAD, awake alert Eye: PERRL, anicteric sclera ENT: normocephalic atraumatic, no oropharyngeal lesions Neck: supple, symmetric, no JVD, no thyromegaly, no lymphadenopathy Heart: RRR, no murmur, no gallops, no rubs, normal peripheral pulses Heart - other findings: S1, S2 Respiratory: CTAB, no wheezes, no rales, no ronchi, normal chest expansion Gastrointestinal: soft, non-tender, non-distended, normal bowel sounds Extremities: no cyanosis, no clubbing, no edema Skin: normal turgor, no lesions Neurological: cranial nerve grossly intact, no new deficit Musculoskeletal: normal tone, normal strength Psychiatric: normal affect, A&O x 3 Hosp A/P (1) COVID-19 Code(s): U07.1 - COVID-19 Status: Acute Plan: Continue resp isolation, Dexamethasone 6mg daily (2) Sinus bradycardia Code(s): R00.1 - BRADYCARDIA, UNSPECIFIED Status: Acute Plan: Supportive mgmt, no indication for PM placement (3) DM type 2 (diabetes mellitus, type 2) Status: Acute Qualifiers: Diabetes mellitus penitentiary insulin use: with superintendent container terminal use Diabetes mellitus complication status: without complication Qualified Code(s): E11.9 - Type 2 diabetes mellitus without complications; Z79.4 - rodent exterminator (current) use of insulin Plan: ISS, ADA (4) Hypotension Status: Chronic Plan: Appears asymptomatic, serial monitoring (5) Hypothyroid Code(s): E03.9 - HYPOTHYROIDISM, UNSPECIFIED Status: Chronic Qualifiers: Hypothyroidism type: unspecified Qualified Code(s): E03.9 - Hypothyroidism , unspecified - Plan PT/OT, social science teacher, respiratory therapy, out of bed/ambulate, DVT proph w/ SCDs Stable currently OOB/ambulate Continue Dexamethasone 6mg daily Transfer to telemetry AM lab: BMP
--- NOTE | 2019-09-24 22:54 | PDOC.EVN ---
Event Note - Event Note Event Note: Patient with episodes of bradycardia tonight with intermittent heart block on the monitor strips. VS are stable, patient is awake, has not been asleep during these episodes. Ordered an EKG, can transfer back to IMCU/CCU if she becomes symptomatic.
[2019-09-25 05:27] LABS: Anion Gap 12 mmol/L (10-20); BUN (Urea Nitrogen) 14 mg/dL (7.0-18.7); Calc. Creatinine Clearance 135 mL/min (70-130); Calcium 8.9 mg/dL (7.8-10.44); Carbon Dioxide 22 mmol/L (22-29); Chloride 105 mmol/L (98-107); Estimated GFR-MDRD 90; Glucose 124 mg/dL (70-105); Potassium 3.9 mmol/L (3.5-5.1); Sodium 135 mmol/L (136-145)
[2019-09-25 08:15] VITALS: BP 88/52; TEMP 97.6
[2019-09-25] MEDS: Dexamethasone 4 MG TAB PO SCH (09:14)
[2019-09-25] MEDS: Famotidine 20 MG TAB PO SCH (09:14)
--- NOTE | 2019-09-25 12:03 | DIS ---
DATE OF ADMISSION: 09/18/2019 DATE OF DISCHARGE: 09/25/2019 DISCHARGE DIAGNOSES: 1. COVID-19 viral infection. 2. Sinus bradycardia. 3. Diabetes mellitus, type 2. 4. Hypotension, asymptomatic. CONSULTATIONS: 1. Dr. Hank Randhawa with Electrophysiology Service. 2. Dr. Coates with Pulmonology Service. 3. Dr. Banks with Cardiology Service. PERTINENT LABORATORY AND X-RAY FINDINGS: Magnesium level 1.8. Troponin I negative x3. TSH 0.39, free T3 of 3.0, free T4 of 0.88. CBC showed a white blood cell count ranging between 2.9 to 7.7. Portable chest x-ray dated 09/18/2019, showed no acute cardiopulmonary process. Portable chest x-ray dated 09/18/2019, showed right internal jugular central venous catheter with tip at the level of the right atrium. No evidence of pneumothorax. HOSPITAL COURSE: The patient was initially admitted after presenting with generalized weakness and COVID-19 positivity. The patient was placed on respiratory isolation and given general pulmonary supportive management in addition to dexamethasone. The patient also received intravenous normal saline and atropine at the time of admission after the patient was noted with sinus bradycardia with heart rates ranging in the 30s to 50s. Consultation was obtained by the Cardiology Service and Electrophysiology Service without recommendations for pacemaker placement or aggressive intervention. The patient did receive a trial of atropine as well as dopamine transiently without specific change to the patient's clinical status. Heart rates remained in the 50s and increased appropriately to the 60s with activity and ambulation. The patient continued to receive general pulmonary supportive care through the remainder of her hospital course and remained off oxygen supplementation with O2 saturations in the mid 90% range. Overall, the patient did remain clinically stable during the hospital course and tolerated regular oral intake. Vital signs have remained stable and O2 saturations currently 96% on room air. I have examined the patient at the time of discharge and discussed followup instructions. The patient verbalized understanding and in agreement and ready for discharge on 09/25/2019. DISCHARGE MEDICATIONS: 1. Dexamethasone 6 mg p.o. daily x7 days. 2. Glucophage 500 mg p.o. q.a.m. FOLLOWUP: The patient may follow up with [place], [place] within 7 days of discharge. CONDITION ON DISCHARGE: Stable. ACTIVITY: Ad-rashid. DIET: ADA. CODE STATUS: Full. DISPOSITION: Home with isolation protocol on 09/25/2019. TIME SPENT: Total time preparing and coordinating discharge, 32 minutes. Job ID: [id number]
[2019-09-25 12:13] LABS: SARS-CoV-2 MS2 Positive; SARS-CoV-2 N Gene Positive; SARS-CoV-2 S Gene Positive; SARS-CoV-2 by NAA DETECTED (NotDetected); SARS-CoV-2 orf1ab Positive
== END 2019-09-25 12:40 | disposition home or self-care (01) | DRG 177 ==
LOC: ERS 00:50 → CCU 02:44 → 2SW 09-24 20:14
PROVIDERS: ADMIT Family Medicine; ATTEND Family Medicine
PROC: 8E0ZXY6 Isolation (ICD-10-PCS; principal; 2019-09-18)
PROC: 05HM33Z Insertion of Infusion Device into Right Internal Jugular Vein, Percutaneous Approach (ICD-10-PCS; 2019-09-18)
PROC: 5A09357 Assistance with Respiratory Ventilation, Less than 24 Consecutive Hours, Continuous Positive Airway Pressure (ICD-10-PCS; 2019-09-25)
DX: U07.1 COVID-19 (principal); J12.89 Other viral pneumonia; R00.1 Bradycardia, unspecified; E11.9 Type 2 diabetes mellitus without complications; I95.9 Hypotension, unspecified; E03.9 Hypothyroidism, unspecified; E87.6 Hypokalemia; D72.819 Decreased white blood cell count, unspecified; Z79.4 Long term (current) use of insulin
CPT/HCPCS: 36415; 36416; 71045; 80048; 80053; 83735; 84100; 84439; 84443; 84481; 84484; 85025; 85027; 87635; 93005; 93010; 94660; 96374; J0461; J1265; J2001; J2405; J7070; J8540; Q0162; U0003